=== PATIENT | female | born 1965 | race Hispanic/Latino ===

== ENCOUNTER 2017-06-27 04:16 | Inpatient (IN) | payer BC ==
[~2017-06-27] VITALS: Ht 154.9 cm; Wt 60.3 kg
[2017-06-27] MEDS ORDERED: SODIUM CHLORIDE 0.9% 1000ML 1,000 ML IV ONE (04:33)
[2017-06-27] MEDS ORDERED: ONDANSETRON HCL MDV 20ML 2 MG/ML VIAL ONE (04:33)
[2017-06-27] MEDS ORDERED: MORPHINE SULFATE 4 MG/1ML SYG ONE (04:34)
[2017-06-27 04:38] LABS: BILIRUBIN,URINE Negative (NEGATIVE); GLUCOSE, URINE (UA) Negative (NEGATIVE); KETONES,URINE Negative (NEGATIVE); LEUKOCYTE ESTERASE ,URINE Small (NEGATIVE); NITRATE,URINE Negative (NEGATIVE); OCCULT BLOOD,URINE Large (NEGATIVE); PH,URINE 6.5 (5.0-8.0); PROTEIN,URINE POS 2+ (NEGATIVE)
[2017-06-27 04:47] LABS: APPEARANCE,URINE TURBID (CLEAR)
[2017-06-27 04:48] LABS: COLOR,URINE RED (YELLOW)
[2017-06-27 04:48] LABS: EOSINOPHILS % (AUTO) 1.5 % (0.0-8.0); HEMATOCRIT 44.1 % (36-48); LYMPHOCYTES % (AUTO) 42.8 % (21.0-51.0); MEAN CORPUSCULAR HEMOGLOBIN 31.5 pg (27.0-33.0); MEAN CORPUSCULAR HGB CONC 33.7 g/dL (32.0-36.0); MEAN CORPUSCULAR VOLUME 93.4 fL (79-99); NEUTROPHILS % (AUTO) 44.7 % (40.0-77.0); NUCLEATED RED BLOOD CELLS 0.1 % (0.0-0.19); PLATELET COUNT (AUTO) 217 K/uL (130-400); RED BLOOD CELL COUNT(AUTO) 4.72 MIL/uL (4.00-5.50); RED CELL DISTRIBUTION WIDTH 12.7 % (11.0-15.5); WHITE BLOOD COUNT (AUTO) 5.7 K/uL (4.8-10.8)
[2017-06-27 04:53] LABS: CREATININE 0.8 mg/dL (0.5-1.5); POTASSIUM 3.5 mmol/L (3.5-5.1)
[2017-06-27 04:53] LABS: BACTERIA,URINE Many /HPF (None Seen); MUCUS,URINE Rare LPF (None Seen); RBC,URINE TNTC /HPF (0-1); SQUAMOUS EPITHELIAL CELL,UR Few /HPF (0-2); WBC,URINE 26-50 /HPF (0-1); YEAST,URINE BUDDING Many /HPF (None Seen)
[2017-06-27 04:57] LABS: ALBUMIN 4.1 g/dL (3.5-5.0); BILIRUBIN,TOTAL 0.4 mg/dL (0.2-1.0); TOTAL PROTEIN, SERUM 7.4 g/dL (6.0-8.3)
[2017-06-27] MEDS ORDERED: KETOROLAC TROMETHAMINE 15MG/ML ONE (05:14)
[2017-06-27] MEDS ORDERED: HYDROMORPHONE HCL 0.5 MG/0.5 ML ML ONE (06:06)
[2017-06-27] MEDS ORDERED: CEFTRIAXONE SODIUM 1 GM ONE (06:17)
[2017-06-27 10:51] VITALS: BP 132/62
[2017-06-27] MEDS ORDERED: ONDANSETRON HCL MDV 20ML 2 MG/ML VIAL IVP PRN (11:30)
[2017-06-27] MEDS ORDERED: METOCLOPRAMIDE 10 MG TABLET PO SCH (11:30)
[2017-06-27 11:38] VITALS: BP 121/75
[2017-06-27 15:34] VITALS: BP 120/71
[2017-06-27] MEDS ORDERED: HYDROMORPHONE HCL 0.5 MG/0.5 ML ML IVP PRN (16:00)
[2017-06-27] MEDS ORDERED: SODIUM CHLORIDE 0.9% 1000ML 1,000 ML IV SCH (16:00)
[2017-06-27] MEDS ORDERED: HYDROMORPHONE 1 MG/1 ML AMP IVP PRN (16:56)
[2017-06-27 19:18] VITALS: BP 128/68
[2017-06-27 19:23] VITALS: BP 129/74
[2017-06-27 23:58] VITALS: BP 137/80
[2017-06-28] MEDS ORDERED: PANTOPRAZOLE SODIUM 40 MG TABLET.DR PO SCH (09:00)
== END 2017-06-28 00:12 | disposition left against medical advice (07) | DRG 694 ==
LOC: EDH 04:16 → EDHIP 06:33 → WSH 10:50
PROVIDERS: ADMIT Internal Medicine Nephrology; ATTEND Internal Medicine Nephrology
DX: N13.2 Hydronephrosis with renal and ureteral calculous obstruction (principal); K31.84 Gastroparesis; N39.0 Urinary tract infection, site not specified; Z87.442 Personal history of urinary calculi; Z88.1 Allergy status to other antibiotic agents; Z88.8 Allergy status to other drugs, medicaments and biological substances
CPT/HCPCS: 36415; 74176; 80053; 81001; 85025; 87040; 87088; J0696; J1170; J1885; J2270; J7030

== ENCOUNTER 2017-06-30 13:23 | Emergency (ER) | payer BC ==
[2017-06-30] MEDS ORDERED: ONDANSETRON HCL MDV 20ML 2 MG/ML VIAL ONE (14:49)
[2017-06-30] MEDS ORDERED: SODIUM CHLORIDE 0.9% 1000ML 1,000 ML IV ONE (14:49)
[2017-06-30] MEDS ORDERED: TAMSULOSIN HCL 0.4 MG CAP.ER.24H ONE (14:50)
[2017-06-30] MEDS ORDERED: HYDROMORPHONE HCL 0.5 MG/0.5 ML ML ONE (14:50)
[2017-06-30 15:12] LABS: APPEARANCE,URINE Clear (CLEAR); BILIRUBIN,URINE Negative (NEGATIVE); COLOR,URINE Yellow (YELLOW); EOSINOPHILS % (AUTO) 0.8 % (0.0-8.0); GLUCOSE, URINE (UA) Negative (NEGATIVE); HEMATOCRIT 41.5 % (36-48); KETONES,URINE Negative (NEGATIVE); LEUKOCYTE ESTERASE ,URINE Trace (NEGATIVE); LYMPHOCYTES % (AUTO) 26.9 % (21.0-51.0); MEAN CORPUSCULAR HEMOGLOBIN 32.1 pg (27.0-33.0); MEAN CORPUSCULAR HGB CONC 34.6 g/dL (32.0-36.0); MEAN CORPUSCULAR VOLUME 92.9 fL (79-99); MONOCYTES % (AUTO) 7.7 % (3.0-13.0); NEUTROPHILS % (AUTO) 63.6 % (40.0-77.0); NITRATE,URINE Negative (NEGATIVE); OCCULT BLOOD,URINE Moderate (NEGATIVE); PH,URINE 7.5 (5.0-8.0); PLATELET COUNT (AUTO) 193 K/uL (130-400); PROTEIN,URINE Negative (NEGATIVE); RED BLOOD CELL COUNT(AUTO) 4.47 MIL/uL (4.00-5.50); RED CELL DISTRIBUTION WIDTH 12.8 % (11.0-15.5); UROBILINOGEN,URINE 0.2 mg/dL (0.2-1.0)
[2017-06-30 15:22] LABS: CREATININE 0.6 mg/dL (0.5-1.5); POTASSIUM 3.8 mmol/L (3.5-5.1)
[2017-06-30 15:27] LABS: ALBUMIN 4.1 g/dL (3.5-5.0); BILIRUBIN,TOTAL 0.3 mg/dL (0.2-1.0); TOTAL PROTEIN, SERUM 7.4 g/dL (6.0-8.3)
[2017-06-30 15:33] LABS: BACTERIA,URINE Few /HPF (None Seen); RBC,URINE 0-1 /HPF (0-1); SQUAMOUS EPITHELIAL CELL,UR 0-2 /HPF (0-2); WBC,URINE 0-1 /HPF (0-1)
[2017-07-07] MEDS ORDERED: SODIUM CHLORIDE 0.9% 1000ML 1,000 ML IV SCH (15:33)
[2017-07-07] MEDS ORDERED: ONDANSETRON HCL 4 MG/2 ML VIAL IV PRN (15:45)
[2017-07-07] MEDS ORDERED: ACETAMINOPHEN 325 MG TAB PO PRN (15:45)
[2017-07-07] MEDS ORDERED: LACTULOSE 20 GM/30 ML UDCUP PO PRN (15:45)
[2017-07-07] MEDS ORDERED: HYDRALAZINE HCL 20 MG/ML VIAL IV PRN (15:45)
[2017-07-07] MEDS ORDERED: ACETAMINOPHEN-CODEINE 300/30MG TAB PO PRN (15:45)
[2017-07-07] MEDS ORDERED: MORPHINE SULFATE 2 MG/ML 1ML SYG IV PRN (15:45)
[2017-07-08] MEDS ORDERED: PANTOPRAZOLE SODIUM 40 MG TABLET.DR PO SCH (09:00)
== END 2017-06-30 16:32 | disposition home or self-care (01) ==
LOC: EDH 13:23
DX: R10.30 Lower abdominal pain, unspecified (principal); Z87.442 Personal history of urinary calculi; Z88.2 Allergy status to sulfonamides
CPT/HCPCS: 36415; 76770; 80053; 81001; 85025; 96361; 96372; 96374; 99285; J1170; J7030

== ENCOUNTER 2017-07-07 10:57 | Inpatient (IN) | payer BC ==
[~2017-07-07] VITALS: Ht 154.9 cm; Wt 59.0 kg
[2017-07-07 11:23] LABS: BASOPHILS % (AUTO) 1.2 % (0.0-5.0); HEMATOCRIT 40.6 % (36-48); LYMPHOCYTES % (AUTO) 28.1 % (21.0-51.0); MEAN CORPUSCULAR HEMOGLOBIN 32.4 pg (27.0-33.0); MEAN CORPUSCULAR HGB CONC 34.7 g/dL (32.0-36.0); MEAN CORPUSCULAR VOLUME 93.4 fL (79-99); NEUTROPHILS % (AUTO) 59.7 % (40.0-77.0); PLATELET COUNT (AUTO) 203 K/uL (130-400); RED BLOOD CELL COUNT(AUTO) 4.35 MIL/uL (4.00-5.50); RED CELL DISTRIBUTION WIDTH 12.8 % (11.0-15.5)
[2017-07-07] MEDS ORDERED: SODIUM CHLORIDE 0.9% 1000ML 1,000 ML IV ONE (11:25)
[2017-07-07] MEDS ORDERED: ONDANSETRON HCL 4 MG/2 ML VIAL ONE (11:28)
[2017-07-07] MEDS ORDERED: HYDROMORPHONE 1 MG/1 ML AMP ONE (11:29)
[2017-07-07 11:31] LABS: CREATININE 0.8 mg/dL (0.5-1.5); POTASSIUM 4.2 mmol/L (3.5-5.1)
[2017-07-07 11:35] LABS: ALBUMIN 3.9 g/dL (3.5-5.0); BILIRUBIN,TOTAL 0.3 mg/dL (0.2-1.0); TOTAL PROTEIN, SERUM 7.1 g/dL (6.0-8.3)
[2017-07-07 14:58] LABS: APPEARANCE,URINE Clear (CLEAR); BILIRUBIN,URINE Negative (NEGATIVE); COLOR,URINE Yellow (YELLOW); GLUCOSE, URINE (UA) Negative (NEGATIVE); KETONES,URINE Negative (NEGATIVE); LEUKOCYTE ESTERASE ,URINE Small (NEGATIVE); NITRATE,URINE Negative (NEGATIVE); OCCULT BLOOD,URINE Small (NEGATIVE); PH,URINE 5.5 (5.0-8.0); PROTEIN,URINE Negative (NEGATIVE); UROBILINOGEN,URINE 0.2 mg/dL (0.2-1.0)
[2017-07-07 15:09] LABS: BACTERIA,URINE Few /HPF (None Seen); MUCUS,URINE Moderate LPF (None Seen)
[2017-07-07] MEDS ORDERED: ACETAMINOPHEN 325 MG TAB PO PRN ×2 (16:50→17:00)
[2017-07-07] MEDS ORDERED: ACETAMINOPHEN-CODEINE 300/30MG TAB PO PRN (16:50)
[2017-07-07] MEDS ORDERED: ONDANSETRON HCL 4 MG/2 ML VIAL IV PRN ×2 (16:50→17:00)
[2017-07-07] MEDS ORDERED: SODIUM CHLORIDE 0.9% 1000ML 1,000 ML IV SCH (16:50)
[2017-07-07] MEDS ORDERED: HYDRALAZINE HCL 20 MG/ML VIAL IV PRN ×2 (16:50→17:00)
[2017-07-07] MEDS ORDERED: LACTULOSE 20 GM/30 ML UDCUP PO PRN ×2 (16:50→17:00)
[2017-07-07] MEDS ORDERED: MORPHINE SULFATE 2 MG/ML 1ML SYG IV PRN ×2 (16:50→17:00)
[2017-07-07] MEDS ORDERED: HYDROCODONE/ACETAMINOPHEN 5/325 MG TAB PO PRN (17:00)
[2017-07-07 17:35] VITALS: BP 125/76
[2017-07-07 19:45] VITALS: BP 113/69
[2017-07-07] MEDS: SODIUM CHLORIDE 0.9% 1000ML 1,000 ML IV SCH (19:50)
[2017-07-07] MEDS ORDERED: CEFTRIAXONE 1GM/D5W 50ML 50 ML IV SCH (20:45)
[2017-07-07] MEDS ORDERED: CEFTRIAXONE SODIUM 1 GM IVP SCH (21:00)
[2017-07-07] MEDS ORDERED: ONDANSETRON HCL MDV 20ML 2 MG/ML VIAL IV PRN (21:42)
[2017-07-07] MEDS ORDERED: ESTR-6 PO (22:13)
[2017-07-07] MEDS ORDERED: domperidone PO (22:13)
[2017-07-08] VITALS (18 sets, daily range): BP systolic 102–149; BP diastolic 54–72
[2017-07-08] MEDS: SODIUM CHLORIDE 0.9% 1000ML 1,000 ML IV SCH (04:20)
[2017-07-08 06:06] LABS: BASOPHILS % (AUTO) 1.1 % (0.0-5.0); EOSINOPHILS % (AUTO) 2.5 % (0.0-8.0); LYMPHOCYTES % (AUTO) 30.6 % (21.0-51.0); MEAN CORPUSCULAR HEMOGLOBIN 33.4 pg (27.0-33.0); MEAN CORPUSCULAR HGB CONC 35.7 g/dL (32.0-36.0); MEAN CORPUSCULAR VOLUME 93.5 fL (79-99); NEUTROPHILS % (AUTO) 55.8 % (40.0-77.0); PLATELET COUNT (AUTO) 184 K/uL (130-400); RED BLOOD CELL COUNT(AUTO) 3.64 MIL/uL (4.00-5.50); RED CELL DISTRIBUTION WIDTH 13.1 % (11.0-15.5); WHITE BLOOD COUNT (AUTO) 4.7 K/uL (4.8-10.8)
[2017-07-08 06:09] LABS: CREATININE 0.6 mg/dL (0.5-1.5); MAGNESIUM 1.8 mg/dL (1.80-2.40); POTASSIUM 3.9 mmol/L (3.5-5.1)
[2017-07-08] MEDS ORDERED: PANTOPRAZOLE SODIUM 40 MG TABLET.DR PO SCH ×2 (09:00)
[2017-07-08] MEDS ORDERED: LACTATED RINGERS 1000ML 1,000 ML IV ONE (09:33)
[2017-07-08] MEDS ORDERED: PROPOFOL 10 MG/ML 20ML VIAL IV ONE (10:00)
[2017-07-08] MEDS ORDERED: LIDOCAINE PF 2% 5ML ABBOJECT ONE (10:00)
[2017-07-08] MEDS ORDERED: NEOSTIGMINE 5MG/5ML SYR IV ONE (10:00)
[2017-07-08] MEDS ORDERED: ONDANSETRON HCL 4 MG/2 ML VIAL ONE (10:00)
[2017-07-08] MEDS ORDERED: MIDAZOLAM HCL 1 MG/ML 2ML VIAL ONE (10:00)
[2017-07-08] MEDS ORDERED: GLYCOPYRROLATE 0.2 MG/ML 5 ML VIAL ONE (10:00)
[2017-07-08] MEDS ORDERED: DEXAMETHASONE SOD PHOSPHATE 10MG/ML 1ML VIAL ONE (10:00)
[2017-07-08] MEDS ORDERED: FENTANYL CITRATE PF 50 MCG/1 ML 2ML VIAL ONE (10:01)
[2017-07-08] MEDS ORDERED: ISOVUE-370 50ML VIAL IV ONE (10:32)
[2017-07-08] MEDS ORDERED: MORPHINE SULFATE 4 MG/1ML SYG ONE ×2 (12:02→12:12)
[2017-07-08] MEDS ORDERED: HYDROCODONE/ACETAMINOPHEN 5/325 MG TAB PO PRN (15:45)
== END 2017-07-08 16:20 | disposition home or self-care (01) | DRG 669 ==
LOC: EDH 10:57 → EDHIP 15:33 → 4BH 16:51
PROVIDERS: ADMIT Family Medicine; ATTEND Family Medicine
PROC: 0T768DZ Dilation of Right Ureter with Intraluminal Device, Via Natural or Artificial Opening Endoscopic (ICD-10-PCS; principal; 2017-07-08 10:20)
PROC: 0TC68ZZ Extirpation of Matter from Right Ureter, Via Natural or Artificial Opening Endoscopic (ICD-10-PCS; 2017-07-08 10:20)
DX: N13.2 Hydronephrosis with renal and ureteral calculous obstruction (principal); K31.84 Gastroparesis; Z87.442 Personal history of urinary calculi
CPT/HCPCS: 36415; 74420; 80048; 80053; 81001; 82360; 83735; 85025; 88300; A4218; A4354; C1758; C1769; C1894; C2617; J0696; J1100; J1170; J2001; J2250; J2270; J2405; J2704; J2710; J3010; J3490; J7030; J7120; Q9967

== ENCOUNTER 2017-07-13 23:56 | Emergency (ER) | payer BC ==
[~2017-07-13 23:56] MED LIST: ESTR-6 PO; domperidone PO
[2017-07-14] MEDS ORDERED: FENTANYL CITRATE PF 50 MCG/1 ML 2ML VIAL ONE (00:25)
[2017-07-14 00:33] LABS: BASOPHILS % (AUTO) 2.3 % (0.0-5.0); HEMATOCRIT 41.3 % (36-48); LYMPHOCYTES % (AUTO) 31.6 % (21.0-51.0); MEAN CORPUSCULAR HEMOGLOBIN 31.5 pg (27.0-33.0); MEAN CORPUSCULAR HGB CONC 33.9 g/dL (32.0-36.0); MEAN CORPUSCULAR VOLUME 93.2 fL (79-99); MONOCYTES % (AUTO) 9.1 % (3.0-13.0); PLATELET COUNT (AUTO) 235 K/uL (130-400); RED BLOOD CELL COUNT(AUTO) 4.43 MIL/uL (4.00-5.50)
[2017-07-14 00:42] LABS: CREATININE 0.8 mg/dL (0.5-1.5); POTASSIUM 3.7 mmol/L (3.5-5.1)
[2017-07-14 00:48] LABS: APPEARANCE,URINE BLOODY (CLEAR); BILIRUBIN,URINE Negative (NEGATIVE); COLOR,URINE RED (YELLOW); GLUCOSE, URINE (UA) Negative (NEGATIVE); KETONES,URINE 40 mg/dL (NEGATIVE); LEUKOCYTE ESTERASE ,URINE Small (NEGATIVE); NITRATE,URINE Negative (NEGATIVE); OCCULT BLOOD,URINE Large (NEGATIVE); PH,URINE 5.5 (5.0-8.0); PROTEIN,URINE 300 (NEGATIVE)
[2017-07-14 00:52] LABS: BACTERIA,URINE Few /HPF (None Seen); RBC,URINE TNTC /HPF (0-1)
== END 2017-07-14 02:30 | disposition home or self-care (01) ==
LOC: EDH 23:56
DX: N76.0 Acute vaginitis (principal); R31.9 Hematuria, unspecified; D70.8 Other neutropenia; Z88.2 Allergy status to sulfonamides; Z88.6 Allergy status to analgesic agent; Z98.890 Other specified postprocedural states
CPT/HCPCS: 36415; 74018; 80048; 81001; 85025; 96374; 99285; J3010

== ENCOUNTER 2018-09-18 23:50 | Emergency (ER) | payer BC ==
[2018-09-19 00:17] LABS: APPEARANCE,URINE CLEAR (CLEAR); BILIRUBIN,URINE SMALL (NEGATIVE); COLOR,URINE YELLOW (YELLOW); GLUCOSE, URINE (UA) NEGATIVE (NEGATIVE); KETONES,URINE 40 mg/dL (NEGATIVE); LEUKOCYTE ESTERASE ,URINE TRACE (NEGATIVE); NITRATE,URINE NEGATIVE (NEGATIVE); OCCULT BLOOD,URINE NEGATIVE (NEGATIVE); PROTEIN,URINE 100 mg/dL (NEGATIVE)
[2018-09-19 00:22] LABS: BACTERIA,URINE None Seen /HPF (None Seen); MUCUS,URINE Many LPF (None Seen); RBC,URINE None Seen /HPF (0-1); SQUAMOUS EPITHELIAL CELL,UR Many /HPF (0-2)
[2018-09-19 00:23] LABS: BASOPHILS % (AUTO) 0.4 % (0.0-5.0); EOSINOPHILS % (AUTO) 0.1 % (0.0-8.0); HEMATOCRIT 42.2 % (36-48); LYMPHOCYTES % (AUTO) 10.1 % (21.0-51.0); MEAN CORPUSCULAR HEMOGLOBIN 31.2 pg (27.0-33.0); MEAN CORPUSCULAR HGB CONC 33.7 g/dL (32.0-36.0); MEAN CORPUSCULAR VOLUME 92.4 fL (79-99); MONOCYTES % (AUTO) 7.2 % (3.0-13.0); NEUTROPHILS % (AUTO) 82.2 % (40.0-77.0); NUCLEATED RED BLOOD CELLS 0.1 % (0.0-0.19); PLATELET COUNT (AUTO) 187 K/uL (130-400); RED BLOOD CELL COUNT(AUTO) 4.57 MIL/uL (4.00-5.50); RED CELL DISTRIBUTION WIDTH 12.4 % (11.0-15.5); WHITE BLOOD COUNT (AUTO) 3.9 K/uL (4.8-10.8)
[2018-09-19 00:51] LABS: CREATININE 0.8 mg/dL (0.5-1.5); POTASSIUM 3.7 mmol/L (3.5-5.1)
[2018-09-19 00:54] LABS: ALBUMIN 3.8 g/dL (3.5-5.0); BILIRUBIN,TOTAL 0.5 mg/dL (0.2-1.0); TOTAL PROTEIN, SERUM 7.1 g/dL (6.0-8.3)
[2018-09-19] MEDS ORDERED: ONDANSETRON HCL 4 MG/2 ML VIAL ONE (01:17)
[2018-09-19] MEDS ORDERED: MORPHINE SULFATE 4 MG/1ML SYG ONE (01:17)
== END 2018-09-19 02:09 | disposition home or self-care (01) ==
LOC: EDH 23:50
DX: K52.9 Noninfective gastroenteritis and colitis, unspecified (principal); Z87.442 Personal history of urinary calculi; Z88.2 Allergy status to sulfonamides; Z88.5 Allergy status to narcotic agent; Z88.6 Allergy status to analgesic agent; Z98.890 Other specified postprocedural states
CPT/HCPCS: 36415; 74176; 76705; 80053; 81001; 82150; 83690; 85025; 93005; 96374; 96375; 99285; J2270; J2405

== ENCOUNTER → 2018-10-21 | Outpatient (CLI) | payer BC | END | disposition home or self-care (01) | LOC: RAH 06:30 | PROVIDERS: ATTEND Internal Medicine Gastroenterology | DX: R93.3 Abnormal findings on diagnostic imaging of other parts of digestive tract (principal); K31.84 Gastroparesis; R10.13 Epigastric pain; R10.9 Unspecified abdominal pain | CPT/HCPCS: 78227; A9537 ==

== ENCOUNTER → 2019-08-20 | Outpatient (CLI) | payer BC | LOC: RAH 14:22 | PROVIDERS: ATTEND Internal Medicine Gastroenterology | DX: K31.84 Gastroparesis (principal) | CPT/HCPCS: 78264; A9541 ==

== ENCOUNTER 2020-03-02 11:51 | Emergency (ER) | payer BC ==
[2020-03-02] MEDS ORDERED: BENZONATATE 100 MG CAPSULE PO ONE (12:16)
[2020-03-02] MEDS ORDERED: AZITHROMYCIN 250 MG TABLET PO ONE (12:16)
[2020-03-02] MEDS ORDERED: CEFTRIAXONE SODIUM 1 GM ONE (12:16)
[2020-03-02 12:44] LABS: BASOPHILS % (AUTO) 0.6 % (0.0-5.0); LYMPHOCYTES % (AUTO) 25.6 % (21.0-51.0); MEAN CORPUSCULAR HEMOGLOBIN 30.9 pg (27.0-33.0); MEAN CORPUSCULAR HGB CONC 32.7 g/dL (32.0-36.0); MEAN CORPUSCULAR VOLUME 94.7 fL (79-99); MONOCYTES % (AUTO) 13.7 % (3.0-13.0); NEUTROPHILS % (AUTO) 58.3 % (40.0-77.0); PLATELET COUNT (AUTO) 180 K/uL (130-400); RED BLOOD CELL COUNT(AUTO) 4.33 MIL/uL (4.00-5.50); RED CELL DISTRIBUTION WIDTH 12.2 % (11.0-15.5); WHITE BLOOD COUNT (AUTO) 3.4 K/uL (4.8-10.8)
[2020-03-02 12:54] LABS: CREATININE 0.6 mg/dL (0.5-1.5); POTASSIUM 3.5 mmol/L (3.5-5.1)
[2020-03-02 12:58] LABS: INR 1.07 (0.85-1.15); PROTHROMBIN TIME 11.4 SEC (9.6-11.6)
[2020-03-02 12:59] LABS: PARTIAL THROMBOPLASTIN TIME 25.4 SEC (26.3-35.5)
[2020-03-02 13:04] LABS: ALBUMIN 3.6 g/dL (3.5-5.0); BILIRUBIN,TOTAL 0.4 mg/dL (0.2-1.0); TOTAL PROTEIN, SERUM 6.8 g/dL (6.0-8.3)
[2020-03-02 13:14] LABS: ABG BASE EXCESS -0.9 mmol/L (-2.0-3.0); ABG HCO3 23.4 mmol/L (21.0-28.0); ABG OXYGEN SATURATION 95.9 % (95.0-99.0); ABG PCO2 38 mmHg (32-45)
[2020-03-02] MEDS ORDERED: DEXAMETHASONE SOD PHOSPHATE 4 MG/ML 5ML VIAL ONE (13:18)
[2020-03-02] MEDS ORDERED: ALBUTEROL INHALER 90MCG/INH IH ONE (13:18)
[2020-03-02 13:29] LABS: RAPID GROUP A STREP NEGATIVE (NEGATIVE)
[2020-03-02] MEDS ORDERED: ASPIRIN 325 MG TABLET ONE (14:26)
== END 2020-03-02 14:56 | disposition home or self-care (01) ==
LOC: EDH 11:51
DX: U07.1 COVID-19 (principal)
CPT/HCPCS: 36415; 36600; 71045; 80053; 82550; 82803; 83605; 83880; 84145; 84484; 85025; 85378; 85610; 85730; 87040 ×2; 87426; 87804 ×2; 87880; 93005; 96361; 96365; 96366; 96375; 99285; J0696; J1100

== ENCOUNTER → 2020-09-22 | Outpatient (CLI) | payer BC ==
[~2020-09-22] MED LIST changes: +GADOTERATE MEGLUMINE 10 MMOL/20 ML VIAL IV ONE
== END | disposition home or self-care (01) ==
LOC: RAH 08:53
PROVIDERS: ATTEND Internal Medicine Gastroenterology
DX: N94.89 Other specified conditions associated with female genital organs and menstrual cycle (principal); Z90.49 Acquired absence of other specified parts of digestive tract
CPT/HCPCS: 74183; A9575

== ENCOUNTER 2021-01-09 11:32 | Emergency (ER) | payer BC ==
[~2021-01-09] VITALS: Ht 154.9 cm; Wt 59.0 kg
[~2021-01-09 11:32] MED LIST changes: -GADOTERATE MEGLUMINE 10 MMOL/20 ML VIAL IV ONE
[2021-01-09] MEDS ORDERED: 0.9%NACL 1000ML 1,000 ML IV STA (11:55)
[2021-01-09] MEDS ORDERED: MORPHINE 4 MG SYG ONE (12:08)
[2021-01-09] MEDS ORDERED: ONDANSETRON 4MG INJ ONE (12:08)
[2021-01-09 12:10] LABS: HEMATOCRIT 40.8 % (36-48); MEAN CORPUSCULAR HEMOGLOBIN 31.3 pg (27.0-33.0); MEAN CORPUSCULAR HGB CONC 32.6 g/dL (32.0-36.0); PLATELET COUNT (AUTO) 200 K/uL (130-400); RED BLOOD CELL COUNT(AUTO) 4.25 MIL/uL (4.00-5.50); RED CELL DISTRIBUTION WIDTH 11.9 % (11.0-15.5); WHITE BLOOD COUNT (AUTO) 5.2 K/uL (4.8-10.8)
[2021-01-09 12:18] LABS: CREATININE 0.7 mg/dL (0.5-1.5); POTASSIUM 4.2 mmol/L (3.5-5.1)
[2021-01-09 12:23] LABS: BILIRUBIN,TOTAL 0.3 mg/dL (0.2-1.0); TOTAL PROTEIN, SERUM 7.2 g/dL (6.0-8.3)
[2021-01-09] MEDS ORDERED: MORPHINE 4 MG SYG IVP ONE (12:30)
[2021-01-09] MEDS ORDERED: ONDANSETRON 4MG INJ IVP ONE (12:30)
[2021-01-09 12:46] LABS: BASOPHILS % (MANUAL) 1 % (0-2); EOSINOPHILS % (MANUAL) 1 % (1-6); LYMPHOCYTES % (MANUAL) 22 % (22-44); MAN.DIFF COMMENT-IMPRESSION MANUAL DIFFERENTIAL; MONOCYTES % (MANUAL) 10 % (2-9); PLATELET MORPHOLOGY COMMENT ADEQUATE; REACTIVE LYMPHOCYTES 2 % (0-0); SEGMENTED NEUTROPHILS % 64 % (40-70)
[2021-01-09 13:27] LABS: APPEARANCE,URINE CLOUDY (CLEAR); BILIRUBIN,URINE NEGATIVE (NEGATIVE); COLOR,URINE YELLOW (YELLOW); GLUCOSE, URINE (UA) NEGATIVE (NEGATIVE); KETONES,URINE NEGATIVE (NEGATIVE); LEUKOCYTE ESTERASE ,URINE NEGATIVE (NEGATIVE); NITRATE,URINE NEGATIVE (NEGATIVE); OCCULT BLOOD,URINE LARGE (NEGATIVE); PROTEIN,URINE NEGATIVE (NEGATIVE); UROBILINOGEN,URINE 0.2 mg/dL (0.2-1.0)
[2021-01-09 13:33] LABS: BACTERIA,URINE Few /HPF (None Seen); WBC,URINE 0-1 /HPF (0-1)
[2021-01-09] MEDS ORDERED: HYDROCODONE/ACETAMINOPHEN 5/325 MG TAB ONE (14:33)
[2021-01-09] MEDS ORDERED: HYDROCODONE/ACETAMINOPHEN 5/325 MG TAB PO ONE (15:11)
[2021-01-09 15:59] VITALS: BP 113/61
[2021-01-09] MEDS ORDERED: MORPHINE 2 MG SYG IM ONE (16:00)
[2021-01-09] MEDS ORDERED: TAMSULOSIN HCL 0.4 MG CAP.ER.24H PO SCH (16:00)
[2021-01-09] MEDS ORDERED: IBUP-2070 PO (16:02)
[2021-01-09] MEDS ORDERED: TAMS-1 PO (16:02)
[2021-01-09] MEDS ORDERED: ACET1TAB25 PO (16:02)
[2021-01-09] MEDS ORDERED: MORPHINE 2 MG SYG ONE (16:06)
[2021-01-09] MEDS ORDERED: TAMSULOSIN HCL 0.4 MG CAP.ER.24H ONE (16:06)
[2021-01-09] MEDS ORDERED: MORPHINE 2 MG SYG IVP ONE (16:30)
== END 2021-01-09 16:22 | disposition home or self-care (01) ==
LOC: EDH 11:32
DX: N20.0 Calculus of kidney (principal); Z88.2 Allergy status to sulfonamides; Z88.5 Allergy status to narcotic agent; Z79.899 Other long term (current) drug therapy; Z79.1 Long term (current) use of non-steroidal anti-inflammatories (NSAID)
CPT/HCPCS: 36415; 74176; 80053; 81001; 83690; 85025; 96361; 96374; 96375; 96376; 99284; J2270; J2405; J7030

== ENCOUNTER 2021-01-25 23:33 | Emergency (ER) | payer BC ==
[~2021-01-25] VITALS: Ht 152.4 cm; Wt 58.1 kg
[~2021-01-25 23:33] MED LIST changes: +ACET1TAB25 PO; +IBUP-2070 PO; +TAMS-1 PO
[2021-01-26] MEDS ORDERED: HYDROCODONE/ACETAMINOPHEN 10/325 MG TAB PO ONE
[2021-01-26 00:33] LABS: CREATININE 0.8 mg/dL (0.5-1.5); POTASSIUM 4.1 mmol/L (3.5-5.1)
[2021-01-26 00:57] LABS: BASOPHILS % (AUTO) 0.7 % (0.0-5.0); EOSINOPHILS % (AUTO) 1.3 % (0.0-8.0); HEMATOCRIT 37.5 % (36-48); LYMPHOCYTES % (AUTO) 21.9 % (21.0-51.0); MEAN CORPUSCULAR HEMOGLOBIN 31.3 pg (27.0-33.0); MEAN CORPUSCULAR HGB CONC 32.3 g/dL (32.0-36.0); MEAN CORPUSCULAR VOLUME 97.2 fL (79-99); MONOCYTES % (AUTO) 10.7 % (3.0-13.0); PLATELET COUNT (AUTO) 206 K/uL (130-400); RED BLOOD CELL COUNT(AUTO) 3.86 MIL/uL (4.00-5.50); RED CELL DISTRIBUTION WIDTH 12.1 % (11.0-15.5); WHITE BLOOD COUNT (AUTO) 5.3 K/uL (4.8-10.8)
[2021-01-26 01:59] LABS: APPEARANCE,URINE Cloudy (CLEAR); BILIRUBIN,URINE Negative (NEGATIVE); COLOR,URINE Red (YELLOW); GLUCOSE, URINE (UA) Negative (NEGATIVE); KETONES,URINE Negative (NEGATIVE); LEUKOCYTE ESTERASE ,URINE Small (NEGATIVE); NITRATE,URINE Negative (NEGATIVE); OCCULT BLOOD,URINE Large (NEGATIVE); PROTEIN,URINE POS 1+ mg/dL (NEGATIVE)
[2021-01-26] MEDS ORDERED: MORPHINE 5 MG/ML VIAL (5MG OR GREATER DOSE) IM ONE (02:00)
[2021-01-26 02:25] LABS: BACTERIA,URINE Few /HPF (None Seen); RBC,URINE >100 /HPF (0-1); SQUAMOUS EPITHELIAL CELL,UR 0-2 /HPF (0-2)
[2021-01-26] MEDS ORDERED: HYDROCODONE/ACETAMINOPHEN 10/325 MG TAB ONE (02:37)
[2021-01-26 03:09] VITALS: BP 122/56
== END 2021-01-26 02:52 | disposition home or self-care (01) ==
LOC: EDH 23:33
DX: N20.0 Calculus of kidney (principal); Z79.1 Long term (current) use of non-steroidal anti-inflammatories (NSAID); Z88.2 Allergy status to sulfonamides; Z88.5 Allergy status to narcotic agent
CPT/HCPCS: 36415; 74176; 80048; 81001; 85025; 96372; 99284; J2270

== ENCOUNTER 2021-12-17 02:25 | Emergency (ER) | payer BC ==
[~2021-12-17] VITALS: Ht 177.8 cm; Wt 76.2 kg
[~2021-12-17 02:25] MED LIST changes: +ACET-2079 PO; -ACET1TAB25 PO
[2021-12-17] MEDS ORDERED: ONDANSETRON 4MG INJ ONE (02:40)
[2021-12-17] MEDS ORDERED: MORPHINE 4 MG SYG ONE (02:40)
[2021-12-17 02:55] LABS: BASOPHILS % (AUTO) 0.5 % (0.0-5.0); LYMPHOCYTES % (AUTO) 25.4 % (21.0-51.0); MEAN CORPUSCULAR HEMOGLOBIN 30.9 pg (27.0-33.0); MEAN CORPUSCULAR HGB CONC 32.4 g/dL (32.0-36.0); MEAN CORPUSCULAR VOLUME 95.1 fL (79-99); NEUTROPHILS % (AUTO) 65.6 % (40.0-77.0); PLATELET COUNT (AUTO) 203 K/uL (130-400); RED BLOOD CELL COUNT(AUTO) 4.31 MIL/uL (4.00-5.50); RED CELL DISTRIBUTION WIDTH 12.2 % (11.0-15.5); WHITE BLOOD COUNT (AUTO) 8.1 K/uL (4.8-10.8)
[2021-12-17] MEDS ORDERED: HYDROMORPHONE 0.5 MG SYG (0.5MG/0.5ML) ONE (02:59)
[2021-12-17] MEDS ORDERED: MORPHINE 4 MG SYG IVP ONE ×2 (03:00→05:30)
[2021-12-17] MEDS ORDERED: HYDROMORPHONE 0.5 MG SYG (0.5MG/0.5ML) IVP ONE (03:00)
[2021-12-17] MEDS ORDERED: 0.9%NACL 1000ML 1,000 ML IV ONE (03:00)
[2021-12-17] MEDS ORDERED: ONDANSETRON 4MG INJ IVP ONE (03:00)
[2021-12-17 03:03] LABS: CREATININE 0.8 mg/dL (0.5-1.5); POTASSIUM 4.2 mmol/L (3.5-5.1)
[2021-12-17 03:08] LABS: ALBUMIN 4.3 g/dL (3.5-5.0); TOTAL PROTEIN, SERUM 7.2 g/dL (6.0-8.3)
[2021-12-17] MEDS ORDERED: TAMSULOSIN HCL 0.4 MG CAP.ER.24H ONE (04:46)
[2021-12-17] MEDS ORDERED: PANTOPRAZOLE 40 MG/VIAL ONE (04:46)
[2021-12-17] MEDS ORDERED: PANTOPRAZOLE 40 MG/VIAL IVP ONE (05:00)
[2021-12-17] MEDS ORDERED: ACET1TAB97 PO (05:17)
[2021-12-17] MEDS ORDERED: IBUP-2070 PO (05:17)
[2021-12-17 05:28] VITALS: BP 131/70
[2021-12-17] MEDS ORDERED: IBUPROFEN 600 MG TABLET PO ONE (05:30)
[2021-12-17] MEDS ORDERED: TAMSULOSIN HCL 0.4 MG CAP.ER.24H PO SCH (05:30)
[2021-12-17] MEDS ORDERED: PHARMACY COMMUNICATION MISC SCH (06:00)
== END 2021-12-17 05:57 | disposition home or self-care (01) ==
LOC: EDH 02:25
DX: N20.1 Calculus of ureter (principal); Z88.2 Allergy status to sulfonamides; Z88.5 Allergy status to narcotic agent; Z90.49 Acquired absence of other specified parts of digestive tract; Z79.1 Long term (current) use of non-steroidal anti-inflammatories (NSAID)
CPT/HCPCS: 99284; 74176; 96374; 96375; 96361; 80053; 85025; 36415; 96376; J2405; J2270 ×2; C9113; J1170

== ENCOUNTER 2022-02-11 07:03 | Emergency (ER) | payer BC ==
[~2022-02-11] VITALS: Ht 154.9 cm; Wt 59.0 kg
[~2022-02-11 07:03] MED LIST changes: +ACET1TAB97 PO
[2022-02-11 07:08] VITALS: BP 127/72
[2022-02-11 07:56] LABS: BASOPHILS % (AUTO) 1.4 % (0.0-5.0); EOSINOPHILS % (AUTO) 1.4 % (0.0-8.0); HEMATOCRIT 41.9 % (36-48); MEAN CORPUSCULAR HEMOGLOBIN 30.6 pg (27.0-33.0); MEAN CORPUSCULAR HGB CONC 31.7 g/dL (32.0-36.0); MEAN CORPUSCULAR VOLUME 96.3 fL (79-99); MONOCYTES % (AUTO) 9.7 % (3.0-13.0); NEUTROPHILS % (AUTO) 54.2 % (40.0-77.0); PLATELET COUNT (AUTO) 172 K/uL (130-400); RED BLOOD CELL COUNT(AUTO) 4.35 MIL/uL (4.00-5.50); RED CELL DISTRIBUTION WIDTH 11.9 % (11.0-15.5); WHITE BLOOD COUNT (AUTO) 3.5 K/uL (4.8-10.8)
[2022-02-11 08:11] LABS: APPEARANCE,URINE CLOUDY (CLEAR); BILIRUBIN,URINE NEGATIVE (NEGATIVE); COLOR,URINE YELLOW (YELLOW); GLUCOSE, URINE (UA) NEGATIVE (NEGATIVE); KETONES,URINE 10 mg/dL (NEGATIVE); LEUKOCYTE ESTERASE ,URINE NEGATIVE Leu/uL (NEGATIVE); NITRATE,URINE NEGATIVE (NEGATIVE); OCCULT BLOOD,URINE NEGATIVE (NEGATIVE); PH,URINE 5.5 (5.0-8.0); PROTEIN,URINE 20 mg/dL (NEGATIVE); UROBILINOGEN,URINE 0.2 mg/dL (0.2-1.0)
[2022-02-11 08:21] LABS: ALBUMIN 4.1 g/dL (3.5-5.0); CREATININE 0.6 mg/dL (0.5-1.5); POTASSIUM 3.2 mmol/L (3.5-5.1); TOTAL PROTEIN, SERUM 7.1 g/dL (6.0-8.3)
[2022-02-11 08:32] LABS: BACTERIA,URINE RARE /HPF (None Seen); CALCIUM OXALATE CRYSTALS,UR MOD /LPF (None Seen); MUCUS,URINE RARE LPF (None Seen); SQUAMOUS EPITHELIAL CELL,UR MOD /HPF (0-2)
[2022-02-11] MEDS ORDERED: POTASSIUM BICARB/CIT AC 25 MEQ TABLET.EFF PO STA (08:46)
[2022-02-11] MEDS ORDERED: POTA-187 PO (09:17)
== END 2022-02-11 09:28 | disposition home or self-care (01) ==
LOC: EDH 07:03
DX: E87.6 Hypokalemia (principal); G44.209 Tension-type headache, unspecified, not intractable; K31.84 Gastroparesis; Z90.49 Acquired absence of other specified parts of digestive tract; Z98.890 Other specified postprocedural states; Z79.899 Other long term (current) drug therapy; Z88.2 Allergy status to sulfonamides; Z88.8 Allergy status to other drugs, medicaments and biological substances
CPT/HCPCS: 36415; 70450; 80053; 81001; 82550; 85025

== ENCOUNTER → 2022-06-19 | Outpatient (CLI) | payer BC ==
[~2022-06-19] MED LIST changes: +POTA-187 PO
[2022-06-19 14:50] LABS: CREATININE 0.9 mg/dL (0.5-1.5)
== END | disposition home or self-care (01) ==
LOC: LAB 14:01
PROVIDERS: ATTEND Internal Medicine
DX: R10.30 Lower abdominal pain, unspecified (principal)
CPT/HCPCS: 36415; 82565; 84520

== ENCOUNTER → 2022-06-24 | Outpatient (CLI) | payer BC ==
[~2022-06-24] MED LIST changes: +IOHEXOL 350 MG/ML 100ML INFUS..BTL IV ONE
== END | disposition home or self-care (01) ==
LOC: RAH 08:55
PROVIDERS: ATTEND Internal Medicine
DX: R10.30 Lower abdominal pain, unspecified (principal); Z90.49 Acquired absence of other specified parts of digestive tract
CPT/HCPCS: 74178; Q9967

== ENCOUNTER 2022-09-24 16:24 | Emergency (ER) | payer BC ==
[~2022-09-24] VITALS: Ht 124.5 cm; Wt 57.6 kg
[~2022-09-24 16:24] MED LIST changes: -IOHEXOL 350 MG/ML 100ML INFUS..BTL IV ONE
[2022-09-24 16:28] VITALS: BP 143/93; PULSE 77; RESP 16
[2022-09-24 16:47] LABS: APPEARANCE,URINE CLOUDY (CLEAR); BILIRUBIN,URINE NEGATIVE (NEGATIVE); COLOR,URINE LIGHT-YELLOW (YELLOW); GLUCOSE, URINE (UA) 50 mg/dL (NEGATIVE); KETONES,URINE NEGATIVE (NEGATIVE); LEUKOCYTE ESTERASE ,URINE NEGATIVE Leu/uL (NEGATIVE); NITRATE,URINE NEGATIVE (NEGATIVE); OCCULT BLOOD,URINE LARGE (NEGATIVE); PH,URINE 5.5 (5.0-8.0); PROTEIN,URINE 10 mg/dL (NEGATIVE); UROBILINOGEN,URINE 0.2 mg/dL (0.2-1.0)
[2022-09-24 16:52] LABS: BACTERIA,URINE MOD /HPF (None Seen); MUCUS,URINE FEW LPF (None Seen); RBC,URINE TNTC /HPF (0-1); SQUAMOUS EPITHELIAL CELL,UR MANY /HPF (0-2); TRANSITIONAL EPI CELLS,URINE RARE /HPF (None Seen)
[2022-09-24] MEDS ORDERED: TAMSULOSIN HCL 0.4 MG CAP.ER.24H PO ONE (17:30)
[2022-09-24] MEDS ORDERED: MORPHINE 4 MG SYG IVP ONE (17:30)
[2022-09-24] MEDS ORDERED: ONDANSETRON 4MG INJ IVP ONE (17:30)
[2022-09-24] MEDS ORDERED: 0.9%NACL 1000ML 1,000 ML IV ONE (17:30)
[2022-09-24 18:14] LABS: BASOPHILS % (AUTO) 1.3 % (0.0-5.0); EOSINOPHILS % (AUTO) 1.6 % (0.0-8.0); HEMATOCRIT 39.1 % (36-48); LYMPHOCYTES % (AUTO) 36.4 % (21.0-51.0); MEAN CORPUSCULAR HEMOGLOBIN 30.5 pg (27.0-33.0); MEAN CORPUSCULAR VOLUME 95.4 fL (79-99); MONOCYTES % (AUTO) 7.9 % (3.0-13.0); NEUTROPHILS % (AUTO) 52.3 % (40.0-77.0); PLATELET COUNT (AUTO) 198 K/uL (130-400); WHITE BLOOD COUNT (AUTO) 3.8 K/uL (4.8-10.8)
[2022-09-24 18:28] LABS: CREATININE 0.7 mg/dL (0.5-1.5); POTASSIUM 4.1 mmol/L (3.5-5.1)
[2022-09-24 18:32] LABS: ALBUMIN 3.7 g/dL (3.5-5.0); TOTAL PROTEIN, SERUM 6.7 g/dL (6.0-8.3)
[2022-09-24] MEDS ORDERED: TAMS-1 PO (18:43)
[2022-09-24] MEDS ORDERED: IBUP-2070 PO (18:43)
[2022-09-24] MEDS: KETOROLAC 30MG VIAL (30MG/ML) IVP ONE ×2 (19:41→19:53)
== END 2022-09-24 21:14 | disposition home or self-care (01) ==
LOC: EDH 16:24
DX: N20.0 Calculus of kidney (principal); K31.84 Gastroparesis; Z90.49 Acquired absence of other specified parts of digestive tract
CPT/HCPCS: 99284; 74176; 96374; 96361; 96375; 80053; 85025; 87088; 81001; 36415; J7030; J2405; J2270; J1885

== ENCOUNTER 2024-04-05 18:11 | Emergency (ER) | payer BC ==
[~2024-04-05] VITALS: Ht 154.9 cm; Wt 59.0 kg
[2024-04-05 18:42] LABS: SARS-CoV-2, RNA, NAAT NEGATIVE SARS CoV-2 (NEGATIVE)
[2024-04-05 18:46] LABS: INFLUENZA TYPE A Negative For Type A (NEGATIVE); INFLUENZA TYPE B Negative For Type B (NEGATIVE)
[2024-04-05 20:01] LABS: CREATININE 0.6 mg/dL (0.5-1.0); POTASSIUM 3.9 mmol/L (3.5-5.1)
[2024-04-05 20:07] LABS: ALBUMIN 3.6 g/dL (3.5-5.0); BILIRUBIN,TOTAL 0.6 mg/dL (0.2-1.0); TOTAL PROTEIN, SERUM 6.7 g/dL (6.0-8.3)
--- NOTE | 2024-04-05 20:08 | ERN ---
ED Note History of Present Illness Stated Complaint: FLU LIKE SYMPTOMS W/PALPITATIONS Chief Complaint: Flu Symptoms Time Seen by MD: 18:14 Time Seen by Midlevel: 18:14 Dictation: The Patient is a 59-year-old female with a history of gastroparesis, who presents to the emergency department with complaints of low-grade fever, palpitations, nonproductive cough, chest pressure onset yesterday night. Patient denies any nausea or vomiting, denies any sore throat. Allergies: Coded Allergies: Sulfa (Sulfonamide Antibiotics) (Unverified Allergy, Intermediate, SWELLING, HIVES, 06/27/17) meperidine (Unverified Allergy, Intermediate, SWELLING AND HIVES, 06/27/17) ketorolac (Unverified Allergy, Unknown, 07/07/17) SWELLING AND HIVES Home Meds Active Scripts Tamsulosin HCl (Flomax) 0.4 Mg Cap.er.24h, 0.4 MG PO DAILY, #14 CAPSULE.DR Prov:[facility] 09/24/22 Ibuprofen (Ibuprofen) 600 Mg Tablet, 600 MG PO Q6H PRN for PAIN, #30 TAB Prov:[facility] 09/24/22 Potassium Chloride (K-Dur/Klor-Con) 10 Meq Ertab, 10 MEQ PO BID for 7 Days, #14 TAB.EC Prov:NEEL RODRIGUEZ MD 02/11/22 Acetaminophen with Codeine (Acetaminophen-Cod #4 Tablet) 1 Each Tablet, 1 EACH PO TID for SEVERE PAIN, #15 TAB Prov:TONIO GOLDMAN MD 12/17/21 Ibuprofen (Ibuprofen) 600 Mg Tablet, 600 MG PO Q6H PRN for PAIN, #30 TAB Prov:TONIO GOLDMAN MD 12/17/21 Tamsulosin HCl (Flomax) 0.4 Mg Cap.er.24h, 0.4 MG PO DAILY for 10 Days, #10 CAPSULE. Prov:DARRYN GALLAGHER 01/09/21 Ibuprofen (Ibuprofen) 600 Mg Tablet, 600 MG PO Q6H PRN for PAIN for 5 Days, #15 TAB Prov:DARRYN GALLAGHER 01/09/21 Acetaminophen with Codeine (Acetaminophen-Cod #3 Tablet) 1 Each Tablet, 1 EACH PO TID for 5 Days, #15 TAB Prov:DARRYN GALLAGHER DELL 01/09/21 Reported Medications Estrogen,Con/M-Progest Acet (Prempro 0.625-5 mg Tablet) 1 Each Tablet, 1 EACH PO AM, TAB 07/07/17 [domperidone] No Conflict Check, 20 MG PO TIDAC 07/07/17 Past Medical History Past Medical History: Anxiety, Other Additional Past Medical Hx: GASTROPARESIS Surgical History: Cholecystectomy, Other, Surgical History Other: RENAL STONE REMOVAL Family History: Negative Social History: Negative, Lives with family, Other History: Not Applicable RN Note Reviewed/Agreed w/PFSH: Yes Review of System Dictation Constitutional: Negative for ,chills, and weight loss positive for fever Eyes: Negative for injury, pain,redness, and discharge ENT: Negative for injury,pain or swelling Cardiovascular: Negative for and edema positive for chest pain, palpitations Respiratory: Negative for shortness of breath, and wheezing, positive for cough Abdomen/GI: Negative for abdominal pain, nausea, vomiting, diarrhea, and constipation Back: Negative for injury and pain : Negative for injury, bleeding and discharge MS/Extremity: Negative for injury and deformity Skin: Negative for rash, and discoloration Neuro: Negative for headache, weakness, numbness, tingling, and seizure Psych: Negative for suicide ideation, homicidal ideation, and hallucinations Initial Vital Sign VS Vital Signs Date Time Temp Pulse Resp B/P (MAP) Pulse Ox O2 Delivery O2 Flow Rate FiO2 04/05/24 18:13 99.0 97 17 153/70 98 Room Air 0 04/05/24 20:18 21 Physical Exam Dictation Vital Signs reviewed General Appearance: Alert, oriented x 3, no acute distress, well developed, nourished. Head and Face: non-traumatic. Eyes: PERRL, pink conjunctivas, eyelid no trauma, anterior chamber with arcus senilis. Ears: Pinnas intact and no signs of trauma or erythema ear canals clear and no discharge TM no erythema Nose: No discharge, no bleeding. Oropharynx: Mouth normal, tongue pink. pharynx clear,no erythema, tonsils no exudates, no abscesses noted, mucous membrane moist Neck: Supple, non-tender, no thyromegaly, no masses, no JVD, no bruits Breast:Deferred Chest:No tenderness, no crepitus, no paradoxical movement, no retractions Lungs:Clear, well-ventilated, symmetric, no rales, no wheezing, no rhonchi, no stridor, good breath sounds bilaterally Heart: Regular rate, regular rhythm, no murmur, no gallops Vascular: no peripheral edema, Abdomen: Soft, positive bowel sounds, nondistended, no guarding, nontender, no rebound, no masses no hepatomegaly, no splenomegaly, no Petit's sign, no hernias. Rectal: Deferred Genital: Deferred Neurological: Normal speech, motor function intact, sensory function intact Musculoskeletal: Neck nontender, full range of motion, back nontender, full range of motion, Extremities: nontender, full range of motion Skin: Color pink, dry, no turgor, no rash, no lacerations, no abrasions, no contusions. Lymphatic: Deferred Results (Laboratory/Radiology) Laboratory/Radiology Laboratory Tests Test 04/05/24 18:21 04/05/24 19:43 04/05/24 20:20 04/05/24 20:33 Influenza Type A Antigen Negative For Type A Influenza Type B Antigen Negative For Type B SARS-CoV-2, RNA, NAAT NEGATIVE SARS CoV-2 White Blood Count 5.6 K/uL (4.8-10.8) Red Blood Count 4.25 MIL/uL (4.00-5.50) Hemoglobin 13.4 g/dL (12.0-16.0) Hematocrit 40.8 % (36-48) Mean Corpuscular Volume 96.0 fL (79-99) Mean Corpuscular Hemoglobin 31.5 pg (27.0-33.0) Mean Corpuscular Hemoglobin Concent 32.8 g/dL (32.0-36.0) Red Cell Distribution Width 13.2 % (11.0-15.5) Platelet Count 148 K/uL (130-400) Mean Platelet Volume 11.8 fL (7.5-10.5) H Immature Granulocyte % (Auto) 0.7 % (0-1) Neutrophils (%) (Auto) 85.0 % (40.0-77.0) H Lymphocytes (%) (Auto) 6.4 % (21.0-51.0) L Monocytes (%) (Auto) 6.2 % (3.0-13.0) Eosinophils (%) (Auto) 1.2 % (0.0-8.0) Basophils (%) (Auto) 0.5 % (0.0-5.0) Neutrophils # (Auto) 4.8 K/uL (1.8-7.7) Lymphocytes # (Auto) 0.4 K/uL (1.0-4.8) L Monocytes # (Auto) 0.4 K/uL (0.1-1.0) Eosinophils # (Auto) 0.07 K/uL (0.00-0.70) Basophils # (Auto) 0.03 K/uL (0.00-0.20) Absolute Immature Granulocyte (auto 0.04 K/uL (0-1) Nucleated Red Blood Cells 0.0 % (0.0-0.19) White Cell Morphology Comment See comments Sodium Level 138 mmol/L (136-145) Potassium Level 3.9 mmol/L (3.5-5.1) Chloride Level 103 mmol/L (101-111) Carbon Dioxide Level 31 mmol/L (21-32) Blood Urea Nitrogen 9 mg/dL (7-18) Creatinine 0.6 mg/dL (0.5-1.0) Glomerular Filtration Rate Calc 102 mL/min (>90) Random Glucose 114 mg/dL (70-105) H Total Calcium 8.6 mg/dL (8.5-10.1) Total Bilirubin 0.6 mg/dL (0.2-1.0) Aspartate Amino Transf (AST/SGOT) 25 U/L (10-37) Alanine Aminotransferase (ALT/SGPT) 27 U/L (12-78) Alkaline Phosphatase 126 U/L (50-136) Total Creatine Kinase 51 U/L (21-232) # Troponin I High Sensitivity 4 ng/L (4-50) 5 ng/L (4-50) B-Type Natriuretic Peptide 25 pg/mL (0-100) Total Protein 6.7 g/dL (6.0-8.3) Albumin 3.6 g/dL (3.5-5.0) Urine Color YELLOW (YELLOW) Urine Appearance CLEAR (CLEAR) Urine pH 7.5 (5.0-8.0) Urine Specific [place] 1.015 (1.001-1.031) Urine Protein NEGATIVE mg/dL (NEGATIVE) Urine Glucose (UA) NEGATIVE mg/dL (NEGATIVE) Urine Ketones NEGATIVE mg/dL (NEGATIVE) Urine Occult Blood NEGATIVE (NEGATIVE) Urine Nitrate NEGATIVE (NEGATIVE) Urine Bilirubin NEGATIVE mg/dL (NEGATIVE) Urine Urobilinogen 0.2 mg/dL (0.2-1.0) Urine Leukocyte Esterase NEGATIVE Sherine/uL Urine Opiates Screen NEGATIVE (NEGATIVE) Urine Barbiturates Screen NEGATIVE (NEGATIVE) Urine Phencyclidine Screen NEGATIVE (NEGATIVE) Urine Amphetamines Screen NEGATIVE (NEGATIVE) Urine Benzodiazepines Screen NEGATIVE (NEGATIVE) Urine Cocaine Screen NEGATIVE (NEGATIVE) Urine Marijuana (THC) Screen NEGATIVE (NEGATIVE) Labs Reviewed?: Yes EKG: (+) rhythm (Sinus rhythm) EKG Comment: Date:04/05/2024 Time:182 Ventricular rate:96 MN interval:155 QRS duration:76 QT/QTc:347 EKG interpretation: Sinus rhythm Reviewed by ED Attending no STEMI ED Course ED Course Orders Procedure Category Date Status Time 12 Lead Ekg Tracing- EKG 04/05/24 Logged Technical 18:19 Troponin I High LAB 04/05/24 Complete Sensitivity 18:19 Basic Metabolic Panel LAB 04/05/24 Complete 18:19 Comprehensive LAB 04/05/24 Complete Metabolic Panel 18:19 Covid Rna Naat LAB 04/05/24 Complete 18:19 Influenza Type A & B, LAB 04/05/24 Complete Rapid 18:19 Chest 1vw RAD 04/05/24 Taken 18:36 Pantoprazole 40mg Inj PHA 04/05/24 Complete (Protonix 40mg Inj 19:00 0.9%Nacl 1000ml (Ns PHA 04/05/24 Complete 1000ml) 19:00 B-Type Natriuretic LAB 04/05/24 Complete Peptide 18:36 Urinalysis Profile LAB 04/05/24 Complete 18:36 Drug Screen Urine LAB 04/05/24 Complete 18:36 Creatine Kinase, Total LAB 04/05/24 Complete 19:17 Guaifenesin-Codeine PHA 04/05/24 Complete Syrup 5ml (Robitussi 20:30 Troponin I High LAB 04/05/24 Complete Sensitivity 20:20 Cbc With Differential LAB 04/05/24 Complete 21:06 Current Medications Medications (Trade) Dose Ordered Sig/Jamari Route PRN Reason Start Time Stop Time Status Last Admin Dose Admin Guaifenesin/ Codeine Phosphate (RobiTUSSin AC 5 ML SYRUP) 10 ml ONCE ONCE PO 04/05/24 20:30 04/05/24 20:31 DC 04/05/24 20:40 Pantoprazole Sodium (PROTonix 40MG INJ) 40 mg ONCE ONCE IVP 04/05/24 19:00 04/05/24 19:01 DC 04/05/24 20:40 Sodium Chloride 1,000 ml @ 0 mls/hr ONCE ONCE IV 04/05/24 19:00 04/05/24 19:01 DC 04/05/24 20:40 Vital Signs Date Time Temp Pulse Resp B/P (MAP) Pulse Ox O2 Delivery O2 Flow Rate FiO2 04/05/24 20:18 99.0 88 17 148/72 98 Room Air* 0 21 04/05/24 18:13 99.0 97 17 153/70 98 Room Air 0 HEART Score Response (Comments) Value History: Low suspicion (0) 0 EKG: Normal 0 Age: 45-65yrs (+1) 1 Risk Factors: No known risk factors (0) 0 HEART Score Risk: Low Risk for MACE (1-3) Total 1 Medical Decision Making MDM Patient is a 59-year-old female with a history of gastroparesis, who presents to the emergency department with complaints of low-grade fever, palpitations, nonproductive cough, chest pressure onset yesterday night. Patient denies any nausea or vomiting, denies any sore throat. CBC showed no leukocytosis, no anemia, chemistry showed no electrolyte imbalance, negative AST, ALT, negative troponin x2, negative BNP, urinalysis unremarkable serology negative. Chest x-ray unremarkable. EKG showed sinus rhythm. Patient continues in no acute distress. No risk for any cardiac etiology. No risk factors. O2 saturations 98% on room air. Patient instructed to follow up with PCP Differential diagnosis: URI, pneumonia, ACS, electrolyte imbalance, dehydration Need for hospitalization: Patient does not meet criteria for hospitalization. There are no social concerns with this patient. DX & DISP Disposition: Discharge Departure Impression: Primary Impression: URI (upper respiratory infection) Additional Impressions: Palpitations, Chest pain with low risk for cardiac etiology Condition: Stable Scripts Guaifenesin/Dextromethorphan (Robitussin Zraip-Vmvqt-Zvga Dm) 200 Mg-10 Mg Capsule 1 CAP PO BID for 10 Days, #20 CAP 0 Refills Prov: JBSUREKHA JONES 04/05/24 Additional Instructions: Please follow up with your primary doctor in 1-2 days. If symptoms worsen please return to ER. FOLLOW-UP WITH PRIMARY CARE PROVIDER IN 1 TO 2 DAYS. TAKE MEDICATIONS DIRECTED HERE IN THE EMERGENCY ROOM. OKAY TO CONTINUE HOME MEDICATIONS UNLESS OTHERWISE DISCUSSED DURING YOUR VISIT IN THE EMERGENCY ROOM TODAY. RETURN TO YOUR NEAREST EMERGENCY ROOM IF SYMPTOMS WORSEN OR IF THERE IS NO IMPROVEMENT. CALL 911 IF YOU NEED IMMEDIATE ASSISTANCE. TAKE TYLENOL OR MOTRIN [id number] NEEDED AND IF NO CONTRAINDICATIONS ARE PRESENT. INCREASE ORAL HYDRATION. A WOUND CULTURE OR URINE CULTURE WAS ORDERED HERE IN THE EMERGENCY ROOM DEPARTMENT PLEASE FOLLOW-UP WITH PRIMARY CARE PROVIDER AND ADVISE THEM TO GET REPEAT PORTS FROM OUR FACILITY. IF YOU HAD ANY AKI WRAP/SPLINTS THAT WERE APPLIED HERE, PLEASE DO NOT REMOVE THEM UNTIL YOU SEE YOUR PRIMARY CARE OR SPECIALTY. Referrals: ETELVINA VYAS (PCP) Time of Disposition: 21:45 I have reviewed the case, and I agree with, Diagnosis and Plan SUREKHA MUHAMMAD Apr 05, 2024 20:08
[2024-04-05 20:18] VITALS: BP 148/72; PULSE 88; RESP 17; TEMP 99; O2SAT 98
[2024-04-05] MEDS: PANTOPrazole 40 MG/VIAL IVP ONE (20:40)
[2024-04-05] MEDS: 0.9%NACL 1000ML 1,000 ML IV ONE (20:40)
[2024-04-05] MEDS: guaiFENesin-coDEINE 5 ML SYRUP PO ONE (20:40)
[2024-04-05 20:55] LABS: APPEARANCE,URINE CLEAR (CLEAR); BILIRUBIN,URINE NEGATIVE (NEGATIVE); COLOR,URINE YELLOW (YELLOW); GLUCOSE, URINE (UA) NEGATIVE (NEGATIVE); KETONES,URINE NEGATIVE (NEGATIVE); LEUKOCYTE ESTERASE ,URINE NEGATIVE Leu/uL (NEGATIVE); NITRATE,URINE NEGATIVE (NEGATIVE); OCCULT BLOOD,URINE NEGATIVE (NEGATIVE); PH,URINE 7.5 (5.0-8.0); PROTEIN,URINE NEGATIVE (NEGATIVE); UROBILINOGEN,URINE 0.2 mg/dL (0.2-1.0)
[2024-04-05 20:56] LABS: ADD UA MICROSCOPIC NO
[2024-04-05 21:03] LABS: AMPHET/METH SCREEN,URINE NEGATIVE (NEGATIVE); BARBITURATE SCREEN, URINE NEGATIVE (NEGATIVE); BENZODIAZEPINES SCREEN,URINE NEGATIVE (NEGATIVE); CANNABINOID SCREEN,URINE NEGATIVE (NEGATIVE); COCAINE SCREEN,URINE NEGATIVE (NEGATIVE); OPIATE SCREEN,URINE NEGATIVE (NEGATIVE); PHENCYCLIDINE SCREEN,URINE NEGATIVE (NEGATIVE)
[2024-04-05 21:19] LABS: BASOPHILS # (AUTO) 0.03 K/uL (0.00-0.20); BASOPHILS % (AUTO) 0.5 % (0.0-5.0); EOSINOPHILS # (AUTO) 0.07 K/uL (0.00-0.70); EOSINOPHILS % (AUTO) 1.2 % (0.0-8.0); HEMATOCRIT 40.8 % (36-48); IMMATURE GRANULOCYTE ABSOLUTE 0.04 K/uL (0-1); LYMPHOCYTES # (AUTO) 0.4 K/uL (1.0-4.8); LYMPHOCYTES % (AUTO) 6.4 % (21.0-51.0); MEAN CORPUSCULAR HEMOGLOBIN 31.5 pg (27.0-33.0); MEAN CORPUSCULAR HGB CONC 32.8 g/dL (32.0-36.0); MONOCYTES # (AUTO) 0.4 K/uL (0.1-1.0); MONOCYTES % (AUTO) 6.2 % (3.0-13.0); NEUTROPHILS # (AUTO) 4.8 K/uL (1.8-7.7); PLATELET COUNT (AUTO) 148 K/uL (130-400); RED BLOOD CELL COUNT(AUTO) 4.25 MIL/uL (4.00-5.50); RED CELL DISTRIBUTION WIDTH 13.2 % (11.0-15.5); WHITE BLOOD COUNT (AUTO) 5.6 K/uL (4.8-10.8)
[2024-04-05] MEDS ORDERED: GUAI-1170 PO (21:47)
--- NOTE | 2024-04-06 06:46 | EKG ---
[facility] Test Date: 2024-04-05 Test Time: 18:26:45 Pat Name: EDWINA MORE Department: ED Room: Gender: F [employer]tr [employer]: [id number] : 1965 Requested By: LYNN LUCERO Order Number: [id number] Reading MD: Hayden Brady Measurements Intervals [place] Rate: 96 P: 66 WI: 155 QRS: 27 QRSD: 76 T: 51 QT: 347 QTc: 439 Interpretive Statements Sinus rhythm Low voltage, precordial leads Compared to ECG 03/02/2020 13:19:21 Low QRS voltage now present Left-axis deviation no longer present Electronically Signed On 04-07-2024 19:58:50 [employer] by Hayden Brady Please click the below link to view image of tracing.
--- NOTE | 2024-04-06 08:26 | HMCIMG ---
CHEST 1VW REASON: cp COMPARISON: 03/02/2020 FINDINGS: Single view of the chest was obtained. Lungs are clear. Heart size is normal. There is no pulmonary vascular congestion. Mediastinum and bony thorax appear unremarkable. IMPRESSION: 1. Normal single view chest x-ray.
== END 2024-04-05 22:08 | disposition home or self-care (01) ==
LOC: EDH 18:11
DX: J06.9 Acute upper respiratory infection, unspecified (principal); R00.2 Palpitations; R07.89 Other chest pain; K31.84 Gastroparesis; F41.9 Anxiety disorder, unspecified; Z79.899 Other long term (current) drug therapy; Z88.2 Allergy status to sulfonamides; Z20.822 Contact with and (suspected) exposure to COVID-19; Z88.5 Allergy status to narcotic agent; Z90.49 Acquired absence of other specified parts of digestive tract
CPT/HCPCS: 99284; 96374; 71045; 87635; 82550; 84484 ×2; 80053; 83880; 80305; 85025; 87804 ×2; 36415; 93005; 81003; J7030; J2470

== ENCOUNTER 2024-09-18 16:23 | Emergency (ER) | payer BC ==
[~2024-09-18] VITALS: Ht 154.9 cm; Wt 59.0 kg
[~2024-09-18 16:23] MED LIST changes: +GUAI-1170 PO; -TAMS-1 PO; +TAMS-55 PO
--- NOTE | 2024-09-18 16:45 | ERN ---
General Chief Complaint: Abdominal Pain Stated Complaint: RLQ PAIN Time Seen by MD: 16:29 Source: patient History of Present Illness Initial Comments Patient is a 59-year-old female coming in complaining of right lower quadrant pain. Patient states that the pain has been ongoing for 3-4 days and states that the pain fluctuates in intensity. She localizes the pain to the right lower quadrant area radiating down the right leg. Allergies: Coded Allergies: Sulfa (Sulfonamide Antibiotics) (Unverified Allergy, Intermediate, SWELLING, HIVES, 06/27/17) meperidine (Unverified Allergy, Intermediate, SWELLING AND HIVES, 06/27/17) ketorolac (Unverified Allergy, Unknown, 07/07/17) SWELLING AND HIVES Home Meds Active Scripts Guaifenesin/Dextromethorphan (Robitussin Spyaw-Weysx-Mfdk Dm) 200 Mg-10 Mg Capsule, 1 CAP PO BID for 10 Days, #20 CAP 0 Refills Prov:SUREKHA MUHAMMAD [employer] 04/05/24 Tamsulosin HCl (Flomax) 0.4 Mg Cap.er.24h, 0.4 MG PO DAILY, #14 CAPSULE. Prov:[facility]HA [facility] [facility] 09/24/22 Ibuprofen (Ibuprofen) 600 Mg Tablet, 600 MG PO Q6H PRN for PAIN, #30 TAB Prov:[facility] 09/24/22 Potassium Chloride (K-Dur/Klor-Con) 10 Meq Ertab, 10 MEQ PO BID for 7 Days, #14 TAB.EC Prov:NEEL RODRIGUEZ MD 02/11/22 Acetaminophen with Codeine (Acetaminophen-Cod #4 Tablet) 1 Each Tablet, 1 EACH PO TID for SEVERE PAIN, #15 TAB Prov:TONIO GOLDMAN MD 12/17/21 Ibuprofen (Ibuprofen) 600 Mg Tablet, 600 MG PO Q6H PRN for PAIN, #30 TAB Prov:TONIO GOLDMAN MD 12/17/21 Tamsulosin HCl (Flomax) 0.4 Mg Cap.er.24h, 0.4 MG PO DAILY for 10 Days, #10 CAPSULE. Prov:DARRYN GALLAGHER 01/09/21 Ibuprofen (Ibuprofen) 600 Mg Tablet, 600 MG PO Q6H PRN for PAIN for 5 Days, #15 TAB Prov:DARRYN GALLAGHER DELL 01/09/21 Acetaminophen with Codeine (Acetaminophen-Cod #3 Tablet) 1 Each Tablet, 1 EACH PO TID for 5 Days, #15 TAB Prov:DARRYN GALLAGHER 01/09/21 Reported Medications Estrogen,Con/M-Progest Acet (Prempro 0.625-5 mg Tablet) 1 Each Tablet, 1 EACH PO AM, TAB 07/07/17 [domperidone] No Conflict Check, 20 MG PO TIDAC 07/07/17 Past Medical History Past Medical History: Anxiety, Kidney Stone, Other Medical History Other: GASTROPARESIS Past Surgical History: Cholecystectomy, Other, Surgical History Other: RENAL STONE REMOVAL Family History Family History: Negative Social History Social History: Negative, Lives with family, Other Female( History) History: Not Applicable ROS Dictation CONSTITUTIONAL: No chills, no fever, no weakness, no diaphoresis, no malaise. HEAD/FACE: No signs of trauma. EENT: No eye pain, no blurred vision, no tearing, no double vision, no ear pain, no ear discharge, no nose pain, no nasal congestion, no throat pain, no throat swelling, no mouth pain. RESPIRATORY: No cough, no orthopnea, no SOB, no stridor, no wheezing. CARDIOVASCULAR: No chest pain, no edema, no palpitations, no syncope. GASTROINTESTINAL/ABDOMINAL: abdominal pain, no constipation, no diarrhea, no nausea, no vomiting. GENITOURINARY: No abnormal discharge, no dysuria, no frequent urination, no hematuria. No complaints of pain in the genitals. MUSCULOSKELETAL: No back pain, no gout, no joint pain, no joint swelling, no muscle pain, no muscle stiffness, no neck pain. INTEGUMENTARY: No change in color, no change in hair/nails, no dryness, no lesion, no lumps, no rash. NEUROLOGICAL/PSYCH: No anxiety, not depressed, no emotional problem, no headache, no numbness, no pre-existing deficit, no history of seizures, no tremors, no weakness. HEMATOLOGIC/LYMPHATIC: Not anemic, no history of blood clots, no apparent bleeding, no bruising, glands not swollen. All Systems Negative, Except as Noted. Physical Exam Physical Exam Dictation VITAL SIGNS: Reviewed. GENERAL APPEARANCE: Alert, oriented x3, no acute distress, obese. HEAD AND FACE: Non-traumatic. EYES: PERRL, pink conjunctivas, eyelid no trauma, anterior chamber clear. EARS: Pinnas intact and no signs of trauma or erythema. Ear canals clear and no discharge. TMs no erythema. NOSE: No discharge, no bleeding. OROPHARYNX: Mouth normal, teeth no caries, tongue pink. Pharynx clear, no erythema. Tonsils no exudates, no abscesses noted. Mucous membrane moist. NECK: Supple, non-tender, no thyromegaly, no masses, no JVD, no bruits. BREAST: Deferred. CHEST: No tenderness, no crepitus, no paradoxical movement, no retractions. LUNGS: Clear, well-ventilated, symmetric, no rales, no wheezing, no rhonchi, no stridor, good breath sounds bilaterally. HEART: Regular rate, regular rhythm, no murmur, no gallops. VASCULAR: No peripheral edema. ABDOMEN: Soft, positive bowel sounds, nondistended, no guarding, rlq tender, no rebound, no masses no hepatomegaly, no splenomegaly, no Petit's sign, no hernias. RECTAL: Deferred. GENITAL: Deferred. NEUROLOGICAL: Normal speech, gross motor function intact, gross sensory function intact. MUSCULOSKELETAL: Neck nontender, full range of motion, back nontender, full range of motion. EXTREMITIES: Nontender, full range of motion. SKIN: Color pink, dry, no turgor, no rash, no lacerations, no abrasions, no contusions. LYMPHATICS: Deferred. Results Laboratory and Microbiology Lab and Micro Result Laboratory Tests Test 09/18/24 16:47 White Blood Count 4.6 K/uL (4.8-10.8) L Red Blood Count 4.27 MIL/uL (4.00-5.50) Hemoglobin 13.3 g/dL (12.0-16.0) Hematocrit 40.6 % (36-48) Mean Corpuscular Volume 95.1 fL (79-99) Mean Corpuscular Hemoglobin 31.1 pg (27.0-33.0) Mean Corpuscular Hemoglobin Concent 32.8 g/dL (32.0-36.0) Red Cell Distribution Width 11.9 % (11.0-15.5) Platelet Count 175 K/uL (130-400) Mean Platelet Volume 10.9 fL (7.5-10.5) H Immature Granulocyte % (Auto) 0.6 % (0-1) Neutrophils (%) (Auto) 65.5 % (40.0-77.0) Lymphocytes (%) (Auto) 24.2 % (21.0-51.0) Monocytes (%) (Auto) 8.2 % (3.0-13.0) Eosinophils (%) (Auto) 0.6 % (0.0-8.0) Basophils (%) (Auto) 0.9 % (0.0-5.0) Neutrophils # (Auto) 3.0 K/uL (1.8-7.7) Lymphocytes # (Auto) 1.1 K/uL (1.0-4.8) Monocytes # (Auto) 0.4 K/uL (0.1-1.0) Eosinophils # (Auto) 0.03 K/uL (0.00-0.70) Basophils # (Auto) 0.04 K/uL (0.00-0.20) Absolute Immature Granulocyte (auto 0.03 K/uL (0-1) Nucleated Red Blood Cells 0.0 % (0.0-0.19) Sodium Level 142 mmol/L (136-145) Potassium Level 4.0 mmol/L (3.5-5.1) Chloride Level 105 mmol/L (101-111) Carbon Dioxide Level 31 mmol/L (21-32) Blood Urea Nitrogen 13 mg/dL (7-18) Creatinine 0.6 mg/dL (0.5-1.0) Glomerular Filtration Rate Calc 102 mL/min (>90) Random Glucose 124 mg/dL (70-105) H Total Calcium 9.0 mg/dL (8.5-10.1) Labs Reviewed?: Yes EKG/XRAY/US/CT/MRI CT Scan Comment CT abdomen and pelvis-3 mm right ureter stone with mild hydronephrosis MDM MDM: Differential diagnosis: Right-sided kidney stone, ureterolithiasis, Rationale: Tests considered and ordered secondary to shared decision making include: Previous outside records reviewed: Old ER visits. Risk of complication and/or morbidity or mortality of patient management: None Medications-Per medication reconciliation Need for hospitalization: Patient does not meet criteria for hospitalization. Patient is a 59-year-old female coming in complaining of right lower quadrant pain. CT disclose a 3 mm kidney stone. Patient will be discharged in stable condition with a diagnosis of ureterolithiasis. Did advised him appropriate follow up with PCP and/or urologist. ED Course Orders Procedure Category Date Status Time Cbc With Differential LAB 09/18/24 Complete 16:39 Basic Metabolic Panel LAB 09/18/24 Complete 16:39 Ct Abdomen/Pelvis W/O CT 09/18/24 Taken Contrast 16:39 Vital Signs Date Time Temp Pulse Resp B/P (MAP) Pulse Ox O2 Delivery O2 Flow Rate FiO2 09/18/24 18:16 72 17 117/56 96 Room Air* 0 21 09/18/24 16:25 99.0 81 16 138/70 99 Room Air 0 DX & DISP Disposition: Discharge Departure Impression: Primary Impression: Ureterolithiasis Condition: Stable Scripts Tamsulosin HCl (Flomax) 0.4 Mg Cap.er.24h 1 CAP PO DAILY for 5 Days, #5 CAP 0 Refills Prov: NEEL RODRIGUEZ MD 09/18/24 Acetaminophen (Tylenol) 500 Mg Tab 1 TAB PO Q6HPRN PRN for pain or fever for 5 Days, #30 TAB 0 Refills Prov: NEEL RODRIGUEZ MD 09/18/24 Cephalexin Monohydrate (Keflex) 500 Mg Cap 1 CAP PO BID for 10 Days, #20 CAP 0 Refills Prov: NEEL RODRIGUEZ MD 09/18/24 Additional Instructions: FOLLOW-UP WITH PRIMARY CARE PROVIDER IN 1 TO 2 DAYS. TAKE MEDICATIONS DIRECTED HERE IN THE EMERGENCY ROOM. OKAY TO CONTINUE HOME MEDICATIONS UNLESS OTHERWISE DISCUSSED DURING YOUR VISIT IN THE EMERGENCY ROOM TODAY. RETURN TO YOUR NEAREST EMERGENCY ROOM IF SYMPTOMS WORSEN OR IF THERE IS NO IMPROVEMENT. CALL 911 IF YOU NEED IMMEDIATE ASSISTANCE. TAKE TYLENOL INAY-FVA-SGMJIVE NEEDED AND IF NO CONTRAINDICATIONS ARE PRESENT. INCREASE ORAL HYDRATION. A WOUND CULTURE OR URINE CULTURE WAS ORDERED HERE IN THE EMERGENCY ROOM DEPARTMENT PLEASE FOLLOW-UP WITH PRIMARY CARE PROVIDER AND ADVISE THEM TO GET REPORTS FROM OUR FACILITY. IF YOU HAD ANY AKI WRAP/SPLINTS THAT WERE APPLIED HERE, PLEASE DO NOT REMOVE THEM UNTIL YOU SEE YOUR PRIMARY CARE OR SPECIALTY. Referrals: Referrals: ETELVINA VYAS (PCP) JENNIFER SCHAFER MD Time of Disposition: 19:01 NEEL RODRIGUEZ MD Sep 18, 2024 16:45
[2024-09-18 16:54] LABS: IMMATURE GRANULOCYTE ABSOLUTE 0.03 K/uL (0-1); NUCLEATED RED BLOOD CELLS 0.0 % (0.0-0.19); PLATELET COUNT (AUTO) 175 K/uL (130-400); RED BLOOD CELL COUNT(AUTO) 4.27 MIL/uL (4.00-5.50); RED CELL DISTRIBUTION WIDTH 11.9 % (11.0-15.5); WHITE BLOOD COUNT (AUTO) 4.6 K/uL (4.8-10.8)
[2024-09-18 17:02] LABS: CREATININE 0.6 mg/dL (0.5-1.0); GLOMERULAR FILTR. RATE CALC 102.0 mL/min (>90); GLUCOSE,RANDOM 124.0 mg/dL (70-105); SODIUM SERUM 142.0 mmol/L (136-145); UREA NITROGEN, BLOOD 13.0 mg/dL (7-18)
[2024-09-18] MEDS ORDERED: ACET-66 PO (19:02)
[2024-09-18] MEDS ORDERED: CEPH500B PO (19:02)
[2024-09-18] MEDS ORDERED: TAMS-55 PO (19:02)
[2024-09-18 19:19] VITALS: BP 124/57; PULSE 72; RESP 18; TEMP 98.2; O2SAT 98
--- NOTE | 2024-09-20 16:39 | HMCIMG ---
EXAM: CT Abdomen and Pelvis Without IV contrast CLINICAL HISTORY: rlq pain TECHNIQUE: Axial computed tomography images of the abdomen and pelvis without intravenous contrast. CONTRAST: No IV contrast. COMPARISON: None provided. FINDINGS: LUNG BASES: The lung bases appear clear. No pleural effusions are seen. LIVER: Unremarkable. GALLBLADDER AND BILE DUCTS: The gallbladder appears within normal limits. No radioopaque gallstones are seen. No biliary ductal dilatation is evident. PANCREAS: Unremarkable. SPLEEN: Unremarkable. ADRENAL GLANDS: Unremarkable. KIDNEYS, URETERS, AND BLADDER: 3 mm proximal right ureteral calculus with mild right hydroureteronephrosis STOMACH AND BOWEL: Unremarkable appearance of the stomach and bowel. No evidence of bowel obstruction. No evidence suggesting enteritis or colitis. APPENDIX: No evidence of acute appendicitis on CT examination. PERITONEUM: No free fluid. No free air. LYMPH NODES: No lymphadenopathy is evident. REPRODUCTIVE: Unremarkable as visualized. VASCULATURE: No evidence of abdominal aortic aneurysm. BONES: No aggressive appearing osseous lesion. No acute osseous pathology evident. MISCELLANEOUS: Superimposed bilateral nonobstructing 1 to 2 mm intrarenal calculi bilaterally IMPRESSION: 1. 3 mm proximal right ureteral calculus with mild right hydroureteronephrosis 2. Superimposed bilateral nonobstructing 1 to 2 mm intrarenal calculi bilaterally /[place]
== END 2024-09-18 19:20 | disposition home or self-care (01) ==
LOC: EDH 16:23
DX: N13.2 Hydronephrosis with renal and ureteral calculous obstruction (principal); F41.9 Anxiety disorder, unspecified; K31.84 Gastroparesis; Z79.899 Other long term (current) drug therapy; Z88.2 Allergy status to sulfonamides; Z88.5 Allergy status to narcotic agent; Z90.49 Acquired absence of other specified parts of digestive tract
CPT/HCPCS: 36415; 74176; 80048; 85025; 99284

== ENCOUNTER 2024-12-26 11:04 | Emergency (ER) | payer BC ==
[~2024-12-26] VITALS: Ht 154.9 cm; Wt 59.0 kg
[~2024-12-26 11:04] MED LIST changes: +ACET-66 PO; +CEPH500B PO; +IBUP-1492 PO; -IBUP-2070 PO
--- NOTE | 2024-12-26 11:11 | ERN ---
ED Note History of Present Illness Stated Complaint: LOWER ABDOMINAL PAIN Chief Complaint: Abdominal Pain Time Seen by MD: 11:05 Dictation: PATIENT IS A 59-YEAR-OLD FEMALE HERE WITH HER WITH COMPLAINTS OF ACUTE ONSET OF SUPRAPUBIC LEFT LOWER QUADRANT PAIN TENDERNESS ONSET WAS 2 HOURS PRIOR TO ARRIVAL. SHE STATES SHE HAS A HAD ONLY TWO C-SECTIONS IN THE PAST STILL HAS A APPENDIX AND HER OVARIES. SHE DENIES VAGINAL BLEEDING NO NAUSEA VOMITING NO CHANGE IN URINATION. STATES THE PAIN FEELS LIKE SHE IS TRYING TO HAVE A BABY. Allergies: Coded Allergies: Sulfa (Sulfonamide Antibiotics) (Unverified Allergy, Intermediate, SWELLING, HIVES, 06/27/17) meperidine (Unverified Allergy, Intermediate, SWELLING AND HIVES, 06/27/17) ketorolac (Unverified Allergy, Unknown, 07/07/17) SWELLING AND HIVES Home Meds Active Scripts Dicyclomine HCl (Bentyl) 20 Mg Tab, 20 MG PO Q6HPRN PRN for ABDOMINAL PAIN/CRAMPS, #30 TAB Prov:CULLEN LYONS LARGE ANIMAL HUSBANDRY TECHNICIAN 12/26/24 Tamsulosin HCl (Flomax) 0.4 Mg Cap.er.24h, 1 CAP PO DAILY for 5 Days, #5 CAP 0 Refills Prov:NEEL RODRIGUEZ MD 09/18/24 Acetaminophen (Tylenol) 500 Mg Tab, 1 TAB PO Q6HPRN PRN for pain or fever for 5 Days, #30 TAB 0 Refills Prov:NEEL RODRIGUEZ MD 09/18/24 Cephalexin Monohydrate (Keflex) 500 Mg Cap, 1 CAP PO BID for 10 Days, #20 CAP 0 Refills Prov:NEEL RODRIGUEZ MD 09/18/24 Guaifenesin/Dextromethorphan (Robitussin Sgfjj-Anktx-Wlsx Dm) 200 Mg-10 Mg Ca psule, 1 CAP PO BID for 10 Days, #20 CAP 0 Refills Prov:SUREKHA MUHAMMAD LARGE ANIMAL HUSBANDRY TECHNICIAN 04/05/24 Tamsulosin HCl (Flomax) 0.4 Mg Cap.er.24h, 0.4 MG PO DAILY, #14 CAPSULE. Prov:AISHA ESPINOSA LARGE ANIMAL HUSBANDRY TECHNICIAN 09/24/22 Ibuprofen (Ibuprofen) 600 Mg Tablet, 600 MG PO Q6H PRN for PAIN, #30 TAB Prov:AISHA ESPINOSA LARGE ANIMAL HUSBANDRY TECHNICIAN 09/24/22 Potassium Chloride (K-Dur/Klor-Con) 10 Meq Ertab, 10 MEQ PO BID for 7 Days, #14 TAB.EC Prov:NEEL RODRIGUEZ MD 02/11/22 Acetaminophen with Codeine (Acetaminophen-Cod #4 Tablet) 1 Each Tablet, 1 EACH PO TID for SEVERE PAIN, #15 TAB Prov:TONIO GOLDMAN MD 12/17/21 Ibuprofen (Ibuprofen) 600 Mg Tablet, 600 MG PO Q6H PRN for PAIN, #30 TAB Prov:TONIO GOLDMAN MD 12/17/21 Tamsulosin HCl (Flomax) 0.4 Mg Cap.er.24h, 0.4 MG PO DAILY for 10 Days, #10 CAPSULE.DR Prov:DARRYN GALLAGHER 01/09/21 Ibuprofen (Ibuprofen) 600 Mg Tablet, 600 MG PO Q6H PRN for PAIN for 5 Days, #15 TAB Prov:DARRYN GALLAGHER 01/09/21 Acetaminophen with Codeine (Acetaminophen-Cod #3 Tablet) 1 Each Tablet, 1 EACH PO TID for 5 Days, #15 TAB Prov:DARRYN GALLAGHER 01/09/21 Reported Medications Estrogen,Con/M-Progest Acet (Prempro 0.625-5 mg Tablet) 1 Each Tablet, 1 EACH PO AM, TAB 07/07/17 [domperidone] No Conflict Check, 20 MG PO TIDAC 07/07/17 Past Medical History Past Medical History: Anxiety, Kidney Stone, Other Additional Past Medical Hx: GASTROPARESIS Surgical History: Cholecystectomy, Other, Surgical History Other: RENAL STONE REMOVAL Family History: Negative Social History: Negative, Lives with family, Other History: Not Applicable RN Note Reviewed/Agreed w/PFSH: Yes Review of System Dictation CONSTITUTIONAL: NEGATIVE EXCEPT FOR HPI HEAD/FACE: NEGATIVE EXCEPT FOR HPI EENT: NEGATIVE EXCEPT FOR HPI RESPIRATORY: NEGATIVE EXCEPT FOR HPI GASTROINTESTINAL/ABDOMINAL: NEGATIVE EXCEPT FOR HPI SEVERE PERIUMBILICAL AND LEFT LOWER QUADRANT PAIN GENITOURINARY: NEGATIVE EXCEPT FOR HPI MUSCULOSKELETAL: NEGATIVE EXCEPT FOR HPI INTEGUMENTARY: NEGATIVE EXCEPT FOR HPI NEUROLOGICAL/PSYCH: NEGATIVE EXCEPT FOR HPI HEMATOLOGIC/LYMPHATIC: NEGATIVE EXCEPT FOR HPI ALL SYSTEMS NEGATIVE, EXCEPT NOTED ABOVE. 13 POINT REVIEW OF SYSTEMS ASSESSED AND ALL NEGATIVE EXCEPT FOR ABOVE. Initial Vital Sign VS Vital Signs Date Time Temp Pulse Resp B/P (MAP) Pulse Ox O2 Delivery O2 Flow Rate FiO2 12/26/24 11:07 97.5 63 19 153/60 99 Room Air 0 12/26/24 13:59 21 Physical Exam Dictation VITAL SIGNS REVIEWED GENERAL APPEARANCE: ALERT, ORIENTED X 3, MODERATE ACUTE DISTRESS, WELL DEVELOPED, NOURISHED. HEAD AND FACE: NON-TRAUMATIC. EYES: PERRL, PINK CONJUNCTIVAS, EYELID NO TRAUMA, ANTERIOR CHAMBER WITH ARCUS SENILIS. EARS: PINNAS INTACT AND NO SIGNS OF TRAUMA OR ERYTHEMA EAR CANALS CLEAR AND NO DISCHARGE TM NO ERYTHEMA NOSE: NO DISCHARGE, NO BLEEDING. OROPHARYNX: MOUTH NORMAL, TONGUE PINK, PHARYNX CLEAR,NO ERYTHEMA, TONSILS NO EXUDATES, NO ABSCESSES NOTED, MUCOUS MEMBRANE MOIST NECK: SUPPLE, NON-TENDER, NO THYROMEGALY, NO MASSES, NO JVD, NO BRUITS BREAST:DEFERRED CHEST:NO TENDERNESS, NO CREPITUS, NO PARADOXICAL MOVEMENT, NO RETRACTIONS LUNGS:CLEAR, WELL-VENTILATED, SYMMETRIC, NO RALES, NO WHEEZING, NO RHONCHI, NO STRIDOR, GOOD BREATH SOUNDS BILATERALLY HEART: REGULAR RATE, REGULAR RHYTHM, NO MURMUR, NO GALLOPS VASCULAR: NO PERIPHERAL EDEMA, ABDOMEN: SOFT, POSITIVE BOWEL SOUNDS, NONDISTENDED, NO GUARDING, SUPRAPUBIC AND LEFT LOWER QUADRANT PAIN TENDERNESS. RECTAL: DEFERRED GENITAL: DEFERRED NEUROLOGICAL: NORMAL SPEECH, MOTOR FUNCTION INTACT, SENSORY FUNCTION INTACT MUSCULOSKELETAL: NECK NONTENDER, FULL RANGE OF MOTION, BACK NONTENDER, FULL RANGE OF MOTION, EXTREMITIES: NONTENDER, FULL RANGE OF MOTION SKIN: COLOR PINK, DRY, NO TURGOR, NO RASH, NO LACERATIONS, NO ABRASIONS, NO CONTUSIONS. LYMPHATIC: DEFERRED Results (Laboratory/Radiology) Laboratory/Radiology Laboratory Tests Test 12/26/24 11:23 12/26/24 11:44 12/26/24 12:45 White Blood Count 3.8 K/uL (4.8-10.8) L Red Blood Count 4.55 MIL/uL (4.00-5.50) Hemoglobin 14.1 g/dL (12.0-16.0) Hematocrit 42.2 % (36-48) Mean Corpuscular Volume 92.7 fL (79-99) Mean Corpuscular Hemoglobin 31.0 pg (27.0-33.0) Mean Corpuscular Hemoglobin Concent 33.4 g/dL (32.0-36.0) Red Cell Distribution Width 12.1 % (11.0-15.5) Platelet Count 191 K/uL (130-400) Mean Platelet Volume 11.4 fL (7.5-10.5) H Immature Granulocyte % (Auto) 0.3 % (0-1) Neutrophils (%) (Auto) 50.9 % (40.0-77.0) Lymphocytes (%) (Auto) 35.4 % (21.0-51.0) Monocytes (%) (Auto) 9.6 % (3.0-13.0) Eosinophils (%) (Auto) 2.7 % (0.0-8.0) Basophils (%) (Auto) 1.1 % (0.0-5.0) Neutrophils # (Auto) 1.9 K/uL (1.8-7.7) Lymphocytes # (Auto) 1.3 K/uL (1.0-4.8) Monocytes # (Auto) 0.4 K/uL (0.1-1.0) Eosinophils # (Auto) 0.10 K/uL (0.00-0.70) Basophils # (Auto) 0.04 K/uL (0.00-0.20) Absolute Immature Granulocyte (auto 0.01 K/uL (0-1) Nucleated Red Blood Cells 0.0 % (0.0-0.19) Sodium Level 143 mmol/L (136-145) Potassium Level 4.9 mmol/L (3.5-5.1) Chloride Level 106 mmol/L (101-111) Carbon Dioxide Level 27 mmol/L (21-32) Blood Urea Nitrogen 12 mg/dL (7-18) Creatinine 0.6 mg/dL (0.5-1.0) Glomerular Filtration Rate Calc 102 mL/min (>90) Random Glucose 104 mg/dL (70-105) Total Calcium 8.6 mg/dL (8.5-10.1) Lipase 41 U/L (16-77) Urine Color LIGHT-YELLOW (YELLOW) Urine Appearance CLOUDY (CLEAR) H Urine pH 6.0 (5.0-8.0) Urine Specific [place] 1.015 (1.001-1.031) Urine Protein NEGATIVE mg/dL (NEGATIVE) Urine Glucose (UA) NEGATIVE mg/dL (NEGATIVE) Urine Ketones NEGATIVE mg/dL (NEGATIVE) Urine Occult Blood MODERATE (NEGATIVE) H Urine Nitrate NEGATIVE (NEGATIVE) Urine Bilirubin NEGATIVE mg/dL (NEGATIVE) Urine Urobilinogen 0.2 mg/dL (0.2-1.0) Urine Leukocyte Esterase NEGATIVE Sherine/uL Urine RBC 6-10 /HPF (0-1) H Urine WBC 11-25 /HPF (0-1) H Urine Squamous Epithelial Cells FEW /HPF (0-2) Urine Transitional Epithelial Cells RARE /HPF (None Seen) Urine Calcium Oxalate Crystals RARE /LPF (None Seen) Urine Amorphous Crystals (Auto) RARE /LPF (None Seen) Urine Bacteria RARE /HPF (None Seen) graphy images of the abdomen and pelvis obtained with intravenous contrast. CONTRAST: With intravenous contrast. COMPARISON: Prior report dated September 19, 2024. FINDINGS: LUNG BASES: The lung bases appear clear. No pleural effusions are seen. LIVER: Unremarkable. GALLBLADDER AND BILE DUCTS: Gallbladder is absent, consistent with cholecystectomy status. No biliary ductal dilatation is evident. PANCREAS: Unremarkable. SPLEEN: Unremarkable. ADRENAL GLANDS: Unremarkable. KIDNEYS, URETERS, AND BLADDER: A 7.4 mm and a 2.1 mm non-obstructive calculus are seen in the left kidney. A 2.9 mm non-obstructive calculus is seen in the right kidney. A 5.8 mm obstructive calculus is present in the right distal ureter, approximately 1.4 cm proximal to the vesicoureteric junction, resulting in mild to moderate upstream hydroureteronephrosis. Urinary bladder appears unremarkable. STOMACH AND BOWEL: Unremarkable appearance of the stomach and small bowel. Colonic diverticulosis is noted without evidence of diverticulitis. APPENDIX: No evidence of acute appendicitis on CT examination. PERITONEUM: No free fluid. No free air. LYMPH NODES: No lymphadenopathy is evident. REPRODUCTIVE: Unremarkable as visualized. VASCULATURE: No evidence of abdominal aortic aneurysm. BONES: No aggressive-appearing osseous lesion. No acute osseous pathology evident. IMPRESSION:5.8 mm obstructive calculus in the right distal ureter, approximately 1.4 cm proximal to the vesicoureteric junction, with mild to moderate upstream hydroureteronephrosis. Non-obstructive bilateral renal calculi: 7.4 mm and 2.1 mm in the left kidney, 2.9 mm in the right kidney. No left ureteral stones. No left hydronephrosis. No bowel obstruction or inflammation. Colonic diverticulosis without diverticulitis. /[facility] Labs Reviewed?: Yes ED Course ED Course Orders Procedure Category Date Status Time Cbc With Differential LAB 12/26/24 Complete 11:09 Urinalysis Profile LAB 12/26/24 Complete 11:09 Ct Abdomen/Pelvis CT 12/26/24 Resulted W/Contrast 11:09 0.9%Nacl 1000ml (Ns PHA 12/26/24 Complete 1000ml) 11:30 Morphine 4mg Syg PHA 12/26/24 Complete (Morphine 4mg Syg) 11:30 Ondansetron 4mg Inj PHA 12/26/24 Complete (Zofran 4mg Inj) 11:30 Lipase LAB 12/26/24 Complete 11:09 Basic Metabolic Panel LAB 12/26/24 Complete 11:09 Iohexol (Omnipaque) PHA 12/26/24 Complete 12:17 Culture Urine ROSINA 12/26/24 In Process 13:16 Dicyclomine Hcl PHA 12/26/24 Complete (Bentyl 20mg Tab) 14:00 Current Medications Medications (Trade) Dose Ordered Sig/Jamari Route PRN Reason Start Time Stop Time Status Last Admin Dose Admin Dicyclomine HCl (Bentyl 20mg Tab) 20 mg ONCE ONCE PO 12/26/24 14:00 12/26/24 14:01 DC 12/26/24 13:57 Iohexol (Omnipaque) 75 ml STK-MED ONCE IV 12/26/24 12:17 12/26/24 12:17 DC Morphine Sulfate (morPHINE 4MG SYG) 4 mg ONCE ONCE IVP 12/26/24 11:30 12/26/24 11:31 DC 12/26/24 11:38 Ondansetron HCl (zoFRAN 4MG INJ) 4 mg ONCE ONCE IVP 12/26/24 11:30 12/26/24 11:31 DC 12/26/24 11:38 Sodium Chloride 1,000 ml @ 0 mls/hr ONCE ONCE IV 12/26/24 11:30 12/26/24 11:31 DC 12/26/24 11:38 Vital Signs Date Time Temp Pulse Resp B/P (MAP) Pulse Ox O2 Delivery O2 Flow Rate FiO2 12/26/24 13:59 98.1 70 16 136/73 97 Room Air* 0 21 12/26/24 11:07 97.5 63 19 153/60 99 Room Air 0 1302/SPOKE WITH BERNA AT [facility] TO HAVE CT SCAN RESULTS EXPEDITED. SHE SAID SHE WOULD FOLLOW UP [id number]/ 1350/PATIENT STATES SHE IS ALMOST COMPLETELY OUT OF PAIN. SHE IS AWARE THAT CT URINE ETC. ALL NEGATIVE. PATIENT REFERRED BACK TO HER PRIMARY CARE DOCTOR FOR MANAGE Medical Decision Making MDM MDM: DIFFERENTIAL DIAGNOSIS: APPENDICITIS/DIVERTICULITIS/HERNIA/URINARY TRACT INFECTION/PYELONEPHRITIS/UROLITHIASIS RATIONALE: TESTS CONSIDERED AND ORDERED SECONDARY TO SHARED DECISION MAKING INCLUDE: LABS/RADIOLOGY PREVIOUS OUTSIDE RECORDS REVIEWED: OLD ER VISITS. RISK OF COMPLICATION AND/OR MORBIDITY OR MORTALITY OF PATIENT MANAGEMENT: NONE MEDICATIONS-PER MEDICATION RECONCILIATION NEED FOR HOSPITALIZATION: PATIENT DOES NOT MEET CRITERIA FOR HOSPITALIZATION. NONE NEED FOR EMERGENCY MAJOR/MINOR SURGERY: NO THERE ARE NO SOCIAL CONCERNS WITH THIS PATIENT. PRESCRIPTION DRUG MANAGEMENT BENTYL PRESCRIPTIONS WILL INCLUDE SYMPTOMATIC CARE PATIENT'S PRIOR EXTERNAL MEDICAL RECORDS FROM OTHER ER VISITS WERE REVIEWED BY ME INDICATED. PRIOR TESTING AND RESULTS FROM PREVIOUS VISITS WERE REVIEWED. PRIOR TESTS WERE TAKEN INTO ACCOUNT WITH MEDICAL DECISION MAKING AND RESOURCE UTILIZATION, INDEPENDENT HISTORIAN/HISTORIANS WERE USED TO OBTAIN COMPLETE MEDICAL HISTORY. I INDEPENDENTLY INTERPRETED THE TEST THAT WERE PERFORMED, RESULTS WERE REVIEWED BY ME AND CONSIDERED FINDINGS ON RADIOLOGY IF ORDERED. MEDICAL MANAGEMENT AND EXAMINATION INTERPRETATION DISCUSSIONS WERE HAD BY ME WITH OTHER QUALIFIED HEALTHCARE PROFESSIONALS INDICATED FOR THE PATIENT'S CARE. DX & DISP Disposition: Discharge Departure Impression: Primary Impression: Bilateral nephrolithiasis Additional Impression: Colic in adult Condition: Stable Scripts Dicyclomine HCl (Bentyl) 20 Mg Tab 20 MG PO Q6HPRN PRN for ABDOMINAL PAIN/CRAMPS, #30 TAB Prov: SERENACULLEN Lakeisha LARGE ANIMAL HUSBANDRY TECHNICIAN 12/26/24 Additional Instructions: FOLLOW-UP WITH PRIMARY CARE PROVIDER IN 1 TO 2 DAYS. TAKE MEDICATIONS DIRECTED HERE IN THE EMERGENCY ROOM. OKAY TO CONTINUE HOME MEDICATIONS UNLESS OTHERWISE DISCUSSED DURING YOUR VISIT IN THE EMERGENCY ROOM TODAY. RETURN TO YOUR NEAREST EMERGENCY ROOM IF SYMPTOMS WORSEN OR IF THERE IS NO IMPROVEMENT. CALL 911 IF YOU NEED IMMEDIATE ASSISTANCE. TAKE TYLENOL OR MOTRIN [id number] NEEDED AND IF NO CONTRAINDICATIONS ARE PRESENT. INCREASE ORAL HYDRATION. A WOUND CULTURE OR URINE CULTURE WAS ORDERED HERE IN THE EMERGENCY ROOM DEPARTMENT PLEASE FOLLOW-UP WITH PRIMARY CARE PROVIDER AND ADVISE THEM TO GET REPEAT PORTS FROM OUR FACILITY. IF YOU HAD ANY AKI WRAP/SPLINTS THAT WERE APPLIED HERE, PLEASE DO NOT REMOVE THEM UNTIL YOU SEE YOUR PRIMARY CARE OR SPECIALTY. TAKE BENTYL DIRECTED FOR ABDOMINAL PAIN. FOLLOW UP WITH YOUR PRIMARY CARE DOCTOR OR [facility] [employer] IN THE NEXT SEVERAL DAYS. Referrals: ETELVINA VYAS (PCP) Time of Disposition: 13:53 I have reviewed the case, and I agree with, Diagnosis and Plan CULLEN LYONSP Dec 26, 2024 11:11 LOIS SANTOS DO Dec 26, 2024 14:13
[2024-12-26 11:37] LABS: IMMATURE GRANULOCYTE ABSOLUTE 0.01 K/uL (0-1); NUCLEATED RED BLOOD CELLS 0.0 % (0.0-0.19); PLATELET COUNT (AUTO) 191 K/uL (130-400); RED BLOOD CELL COUNT(AUTO) 4.55 MIL/uL (4.00-5.50); RED CELL DISTRIBUTION WIDTH 12.1 % (11.0-15.5); WHITE BLOOD COUNT (AUTO) 3.8 K/uL (4.8-10.8)
[2024-12-26] MEDS: 0.9%NACL 1000ML 1,000 ML IV ONE (11:38)
--- NOTE | 2024-12-26 12:01 | NUR ---
PENDING GFR RESULTS, IV SITE, & CONSENT FOR CT EXAM.
[2024-12-26 12:02] LABS: CREATININE 0.6 mg/dL (0.5-1.0); GLOMERULAR FILTR. RATE CALC 102.0 mL/min (>90); GLUCOSE,RANDOM 104.0 mg/dL (70-105); SODIUM SERUM 143.0 mmol/L (136-145); UREA NITROGEN, BLOOD 12.0 mg/dL (7-18)
[2024-12-26] MEDS ORDERED: IOHEXOL-350 75 ML VIAL IV ONE (12:17)
[2024-12-26 13:09] LABS: APPEARANCE,URINE CLOUDY (CLEAR); GLUCOSE, URINE (UA) NEGATIVE (NEGATIVE); LEUKOCYTE ESTERASE ,URINE NEGATIVE Leu/uL (NEGATIVE); NITRATE,URINE NEGATIVE (NEGATIVE); OCCULT BLOOD,URINE MODERATE (NEGATIVE)
[2024-12-26 13:10] LABS: ADD UA MICROSCOPIC YES
[2024-12-26 13:15] LABS: CALCIUM OXALATE CRYSTALS,UR RARE /LPF (None Seen); SQUAMOUS EPITHELIAL CELL,UR FEW /HPF (0-2)
--- NOTE | 2024-12-26 13:34 | HMCIMG ---
EXAM: CT Abdomen and Pelvis with IV contrast CLINICAL HISTORY: Acute onset suprapubic and left lower quadrant pain TECHNIQUE: Axial computed tomography images of the abdomen and pelvis obtained with intravenous contrast. CONTRAST: With intravenous contrast. COMPARISON: Prior report dated September 19, 2024. FINDINGS: LUNG BASES: The lung bases appear clear. No pleural effusions are seen. LIVER: Unremarkable. GALLBLADDER AND BILE DUCTS: Gallbladder is absent, consistent with cholecystectomy status. No biliary ductal dilatation is evident. PANCREAS: Unremarkable. SPLEEN: Unremarkable. ADRENAL GLANDS: Unremarkable. KIDNEYS, URETERS, AND BLADDER: A 7.4 mm and a 2.1 mm non-obstructive calculus are seen in the left kidney. A 2.9 mm non-obstructive calculus is seen in the right kidney. A 5.8 mm obstructive calculus is present in the right distal ureter, approximately 1.4 cm proximal to the vesicoureteric junction, resulting in mild to moderate upstream hydroureteronephrosis. Urinary bladder appears unremarkable. STOMACH AND BOWEL: Unremarkable appearance of the stomach and small bowel. Colonic diverticulosis is noted without evidence of diverticulitis. APPENDIX: No evidence of acute appendicitis on CT examination. PERITONEUM: No free fluid. No free air. LYMPH NODES: No lymphadenopathy is evident. REPRODUCTIVE: Unremarkable as visualized. VASCULATURE: No evidence of abdominal aortic aneurysm. BONES: No aggressive-appearing osseous lesion. No acute osseous pathology evident. IMPRESSION:5.8 mm obstructive calculus in the right distal ureter, approximately 1.4 cm proximal to the vesicoureteric junction, with mild to moderate upstream hydroureteronephrosis. Non-obstructive bilateral renal calculi: 7.4 mm and 2.1 mm in the left kidney, 2.9 mm in the right kidney. No left ureteral stones. No left hydronephrosis. No bowel obstruction or inflammation. Colonic diverticulosis without diverticulitis. /[place]
[2024-12-26] MEDS ORDERED: DICY20TA2 PO (13:54)
[2024-12-26] MEDS: DICYCLOMINE HCL 20 MG TAB PO ONE (13:57)
[2024-12-26 13:59] VITALS: BP 136/73; PULSE 70; RESP 16; TEMP 98.1; O2SAT 97
== END 2024-12-26 14:02 | disposition home or self-care (01) ==
LOC: EDH 11:04
DX: K31.84 Gastroparesis (principal); N13.2 Hydronephrosis with renal and ureteral calculous obstruction; Z88.2 Allergy status to sulfonamides; Z88.5 Allergy status to narcotic agent; Z79.899 Other long term (current) drug therapy; Z88.6 Allergy status to analgesic agent; Z79.891 Long term (current) use of opiate analgesic; Z87.442 Personal history of urinary calculi; Z90.49 Acquired absence of other specified parts of digestive tract
CPT/HCPCS: 99285; 74177; 96374; 96375; 80048; 83690; 85025; 87086; 81001; 36415; J2405; J7030; J2270; Q9967